=== PATIENT | male | born 1970 | race Caucasian/White ===

== ENCOUNTER 2020-05-20 10:51 | Outpatient (REF) | payer MEDICAID, SELFPAY | END 2020-05-20 10:52 | disposition home or self-care (01) | LOC: HO.LAB 10:51 | PROVIDERS: Visit Provider Internal Medicine | DX: Z20.822 Contact with and (suspected) exposure to COVID-19 (principal) | CPT/HCPCS: 36415; C9803; U0003; U0005 ==

== ENCOUNTER 2020-12-06 08:58 | Emergency (ER) | payer MEDICAID, SELFPAY ==
[2020-12-06 09:01] VITALS: BP 151/96; PULSE 74; RESP 16; TEMP 36.4; O2SAT 100; BMI 30.1
--- NOTE | 2020-12-06 09:09 | ED.MALEGU ---
HPI - Male Genitourinary General Chief complaint: Urogenital-Male Stated complaint: ?std Time Seen by Provider: 12/06/20 09:05 Source: patient Mode of arrival: ambulatory Limitations: no limitations History of Present Illness HPI Narrative: 50 y/o male presenting with white/clear urethral discharge after unprotected sex 3 days ago. He reports concerns for STDs. He also has some burning with urination. No fevers, N/V/D or abdominal pain. No testicular pain. No genital lesions or itching. MD Complaint: penile discharge, dysuria and possible STD exposure Onset (ago): day(s) (3) Duration: intermittent Location: penis Severity: mild Severity scale (1-10): 4 Quality: burning Relieving factors: none Exacerbating factors: none Context: new sexual partner Associated symptoms: Reports discharge and dysuria Related Data Sexually active: Yes Previous Rx's Medication Instructions Recorded doxycycline monohydrate 100 mg 100 mg PO BID #14 tab 12/06/20 tablet Allergies Allergy/AdvReac Type Severity Reaction Status Date / Time No Known Allergies Allergy Verified 12/06/20 09:03 Review of Systems Constitutional: Constitutional: Denies chills and Denies fever(s) Eyes: Eyes: Reports no additional eye complaints ENT: Reports system reviewed and no additional complaints, except as documented Cardiovascular: Cardiovascular: Denies chest pain Respiratory: Respiratory: Denies cough Gastrointestinal: Gastrointestinal: Denies abdominal pain, Denies diarrhea, Denies nausea and Denies vomiting Genitourinary: Genitourinary: Denies hematuria, Denies genital lesions, Denies genital pain, Reports dysuria, Reports penile discharge, Denies scrotal swelling, Denies testicular mass and Denies testicular pain Musculoskeletal: Musculoskeletal: Denies back pain Integumentary/Breasts: Skin/Breast: Denies pruritus and Denies lesions Psychiatric: Psychiatric: Reports anxiety PMFSH Past Medical History Attestation statement: The following information was validated with the patient. Social History Social History Advance Directives: No Advance Directives Information Provided: No Physical Exam Vital Signs: Vital Signs: Last Vital Signs Temp 97.6 F 12/06/20 09:01 Pulse 74 12/06/20 09:01 Resp 16 12/06/20 09:01 BP 151/96 H 12/06/20 09:01 Pulse Ox 100 12/06/20 09:01 Body Mass Index 30.1 Const: General: cooperative, healthy appearing, comfortable and no acute distress Nutritional Appearance: average body habitus Orientation/consciousness: patient oriented x3 Limitations: no limitations HENMT: Head: Yes normal to inspection Ears: hearing grossly normal bilaterally and external ears normal General nose exam: Normal external nose present and Normal nares present Face and sinus: Yes normal facial exam and Yes face symmetric Mouth: Normal oral and palatal mucosa present, lip normal, tongue normal, oropharynx normal and moist mucous membranes Teeth and gingiva: dentition normal and gingiva normal Throat: Yes posterior oropharynx normal, Yes tonsils normal and Yes uvula midline Eyes: General: appearance normal, both eyes and all related structures Neck: Neck: Yes normal visual inspection Chest: Chest palpation & inspection: normal inspection of the chest Resp: Effort & Inspection: normal respiratory effort and able to speak in complete sentences GI: Inspection: Yes normal to inspection Palpation (GI): Soft to palpation and nontender Rectal Exam - Male: Yes deferred : Male General Exam: Yes normal external exam, No Genital lesions present and No tenderness Penis: normal penis, circumcised and No Genital lesions present Meatus: meatus normal and no meatla discharge Scrotum: scrotum normal Testes: Testes normal Skin: General skin exam: no rashes or lesions noted Neuro: General: patient oriented x3, gait normal, tone normal and moves all extremities Extrem: General: Yes normal to inspection Psych: Appearance: grossly normal and well kempt Mental Status: mental status grossly normal Speech and movement: Normal speech and movement present Affect: normal affect Attitude: cooperative Course Course Course Narrative: 50 y/o male presenting with symptoms of STI, probable CT/NG. Will treat with PO azithromycin and IM rocephin. Doxy sent to pharmacy and patient has been counseled. He will follow up with his doctor and inform his partner. Stable for d/c home with outpatient follow up. MDM - Male Genitourinary Lab Data Labs: Lab Results 12/06/20 Range/Units 09:25 Urine Color YELLOW Urine Appearance CLEAR Urine pH 6.0 (5.0-8.0) Ur Specific [place] 1.025 (1.005-1.025) Urine Protein NEG (NEG-TRACE) MG/DL Urine Glucose (UA) NEG (NEG) MG/DL Urine Ketones NEG (NEG) MG/DL Urine Blood NEG (NEG) Urine Nitrite NEG (NEG) Ur Leukocyte Esterase NEG (NEG) Discharge Plan Discharge Clinical Impression: Urethritis Patient Disposition: Home, Self-Care Instructions: Chlamydia (ED), Gonorrhea (ED) Additional Instructions: Your urine test was negative for urine infection. You were treated for possible sexually transmitted diseases today. If your tests for gonorrhea or chlamydia come back positive, we will call you to let you know. Do not have sex until all of your symptoms are resolved. Recommend informing your partner you were tested and treated today. Follow up with your doctor as needed. If you develop new or worsening symptoms call 911 or come back to the ER for further evaluation. Prescriptions: New doxycycline monohydrate 100 mg tablet 100 mg PO BID Qty: 14 RF: 0 Interventions: ED Discharge Assessment Last Done: 12/06/20 10:35 Discharge Date/Time: 12/06/20 10:36
[2020-12-06 09:33] LABS: Appearance Urine CLEAR; Color Urine YELLOW; Glucose Urine UA NEG (NEG); Leukocyte Esterase Urine NEG (NEG); Nitrite Urine NEG (NEG); Specific Gravity - Urine 1.025 (1.005-1.025); Urine Blood NEG (NEG); Urine Ketones NEG (NEG); Urine Protein NEG (NEG-TRACE)
[2020-12-06] MEDS: Azithromycin 500 MG TABLET 1000 MG PO (09:33)
[2020-12-06] MEDS: cefTRIAXone sodium 500 MG, Lidocaine HCl 1 % MPF 1 ML IM (09:34)
[2020-12-06 11:51] LABS: CT PCR NOT DETECTED (Not Detect.); NG PCR NOT DETECTED (Not Detect.)
== END 2020-12-06 10:36 | disposition home or self-care (01) ==
PROVIDERS: Physician Assistant; Emergency Provider Emergency Medicine; PCP Nurse Practitioner Family
DX: N34.2 Other urethritis (principal); R36.9 Urethral discharge, unspecified; R30.0 Dysuria; Z20.2 Contact with and (suspected) exposure to infections with a predominantly sexual mode of transmission; Z79.899 Other long term (current) drug therapy
CPT/HCPCS: 81003; 87491; 87591; 96372; 99283; J0696

== ENCOUNTER 2021-08-10 08:14 | Outpatient (REF) | payer MEDICAID, SELFPAY ==
[2021-08-10 09:00] LABS: COVID-19 Test Negative (Negative); IDNOW Serial# 08D9AD1C
== END 2021-08-10 08:15 | disposition home or self-care (01) ==
LOC: HO.LAB 08:14
PROVIDERS: Visit Provider Internal Medicine
DX: Z20.822 Contact with and (suspected) exposure to COVID-19 (principal)
CPT/HCPCS: 87635; C9803

== ENCOUNTER 2024-02-01 15:06 | Emergency (ER) | payer MEDICAID, SELFPAY ==
--- NOTE | ~2024-02-01 | XR_ITS ---
EXAMINATION: XR LUMBOSACRAL SPINE CLINICAL INFORMATION: Pain. COMPARISON: None available. TECHNIQUE: Three views of the lumbosacral spine. FINDINGS: Trace leftward curvature of the lumbar spine. No acute compression deformity or subluxation. Mild intervertebral disc height loss with moderate facet arthropathy at L5-S1 leading to some degree of neural foraminal encroachment. SI joints are symmetric. No significant paraspinal soft tissue abnormality. XR/XR lumbar spine 2-3V IMPRESSION: 1. No acute compression deformity or subluxation. 2. Mild to moderate lumbar spondylosis at L5-S1. Electronically signed by: Alyssa Fink MD 02/01/2024 05:33 PM EDT
[2024-02-01 15:22] VITALS: BP 134/93; PULSE 67; RESP 16; TEMP 36.9; O2SAT 97; BMI 30.3
--- NOTE | 2024-02-01 15:23 | ED_ITS ---
HPI - General Adult General Chief complaint: Extremity Injury, Lower Stated complaint: right leg pain Time Seen by Provider: 02/01/24 18:08 Source: patient Mode of arrival: ambulatory Limitations: no limitations History of Present Illness ED Provider: MICHEAL WHYTE PA-C HPI narrative: 53-year-old male with no significant pmhx presents to the ED today with right- sided low back/hip pain x months. Reports pain radiation down his right thigh. Admits the pain is burning in sensation and worse at night making it difficult for him to sleep. Has been taking ccny-gge-yteecuc Motrin without improvement. Denies known injury, trauma or fall. No history of similar. Denies numbness/tingling/weakness of the lower extremities, saddle anesthesia, bowel or bladder incontinence or retention, dysuria, hematuria. Related Data Previous Rx's ?Medication ?Instructions ?Recorded doxycycline monohydrate 100 mg 100 mg PO BID #14 tabs 12/06/20 tablet lidocaine 5 % topical patch 1 patch topical DAILY #15 ea 02/01/24 (Lidoderm) naproxen 500 mg tablet 500 mg PO Q8-12H PRN pain (scale 02/01/24 score 1-3) #20 tabs prednisone 20 mg tablet 40 mg (2 x 20 mg) PO DAILY 5 days 02/01/24 #10 tabs Allergies Allergy/AdvReac Type Severity Reaction Status Date / Time No Known Allergies Allergy Verified 02/01/24 15:24 Review of Systems Review of Systems: Constitutional: No fever, chills, fatigue, night sweats, weight changes ENT/Mouth: No ear pain, hearing loss, nasal congestion, sinus pain, rhinorrhea, sore throat Eyes: No eye pain, swelling, redness, vision changes, discharge Cardio: No chest pain, palpitations, FRANCISCO, orthopnea, peripheral edema Pulm: No SOB, cough, sputum, wheezing, dyspnea, hemoptysis GI: No nausea, vomiting, hematemesis, abdominal pain, diarrhea, constipation, hematochezia, melena : No irregular bleeding, dysuria, frequency, urgency, hesitancy, hematuria, flank pain, urinary flow changes, urinary incontinence or retention MSK: +back pain, No neck pain, joint pain, myalgias Skin: No lesions, rashes Neuro: No weakness, numbness, paresthesias, LOC, dizziness, headache All other systems reviewed and are negative. [facility] Past Medical History Attestation statement: The following information was validated with the patient. Source: old records reviewed and nursing notes reviewed Social History Social History Advance Directives: No Advance Directives Information Provided: Yes Physical Exam ED Vital Signs: Vital Signs - 24 hr 02/01/24 15:22 02/01/24 18:55 Temperature 98.4 F 98.4 F Pulse Rate 67 67 Respiratory Rate 16 16 Blood Pressure 134/93 H 134/93 H Pulse Oximetry 97 97 Oxygen Delivery Method Room Air Room Air BMI result Body Mass Index 30.3 hypertensive, vitals otherwise wnl General: Well appearing, in no acute distress. Skin: Warm, dry, intact. No rashes or lesions. Head: Normocephalic, atraumatic. EENT: Hearing is intact b/l. PERRLA. EOM intact. Moist mucous membranes.? Neck: Supple without LAD Cardiac: Chest wall symmetric. RRR. Lungs: Normal respiratory effort without accessory muscle use. CTA bilaterally. Abdomen: Soft, non-tender, non-distended. No rebound tenderness or guarding. Positive BS x4. No CVAT. Back: No midline spinous or paraspinal tenderness. No step off deformity. positive straight leg raise on right. Ext: Upper and lower extremities atraumatic, without tenderness, deformity, swelling or erythema. Full ROM throughout. Neuro: AOx3. Normal speech. Strength 5/5 intact throughout. No saddle anesthesia. Sensation intact to light touch. NV intact distally. Reflexes 2+ bilaterally. Ambulating with steady gait. Psych: Appropriate mood and affect. Responds appropriately to questions. Course Course Course Narrative: RME, this is a rapid medical exam performed by Margarito Dunn please refer to primary provider for complete H&P- 53-year-old male presents for evaluation of right lower back pain that radiates around to his right upper leg. Denies any known injury, there are no warning signs for cauda equina syndrome. History is consistent with sciatica. Plan for x-ray. Reevaluation(s) Reevaluation #1: 6696 -- xr lumbar spine showing mild to moderate lumbar spondylosis at L5/S1. No acute deformity, fracture subluxation. > physical exam is consistent with sciatica. Patient treated with IM Toradol in the ED. Will send naproxen and prednisone to pharmacy. I have also provided him with low back exercises to perform at home. Referral to PCP provided. Patient has remained stable throughout ED visit today. Discussed worrisome signs and symptoms and when to return to the ED. All questions answered at this time. Patient is agreeable with disposition and stable for discharge. Medications Administered Discontinued Medications Generic Name Dose Route Start Last Admin Trade Name Rony PRN Reason Stop Dose Admin Ketorolac Tromethamine 30 mg 02/01/24 18:26 02/01/24 18:31 Ketorolac Tromethamine 30 Mg/Ml Vial IM 02/01/24 18:27 30 mg ONCE ONE Administration Medical Decision Making Medical Decision Making MDM Narrative: 53-year-old male with no significant pmhx presents to the ED today with right- sided low back/hip pain x months. Hypertensive, vitals otherwise wnl. he is nontoxic appearing and in NAD. lying comfortably on the exam bed. on exam, there is no midline spinous or paraspinal tenderness. No step off deformity. positive straight leg raise on right. Strength 5/5 intact throughout. No saddle anesthesia. Sensation intact to light touch. NV intact distally. Reflexes 2+ bilaterally. Ambulating with steady gait. Differential diagnosis includes MSK sprain/strain, fracture, subluxation, disc herniation, sciatica. Unlikely cord compression, cauda equina, Guillain-Cable, epidural abscess. Presentation not consistent with UTI, renal colic, nephrolithiasis, pyelo, hydronephrosis. Plan for imaging, pain control, and re-evaluation. Differential Diagnosis Differential Diagnoses: The differential diagnosis associated with the presentation includes as above Admission/Observation Not indicated. Independent Interpretation I performed an independent interpretation of an: Plain X-Ray Interpretation: xr without fracture, agree with radiologist's interpretation. Radiology Impression Discussion of test interpretation with radiology: I have reviewed the radiologist's reading. Radiologist Impression: EXAMINATION: XR LUMBOSACRAL SPINE CLINICAL INFORMATION: Pain. COMPARISON: None available. TECHNIQUE: Three views of the lumbosacral spine. FINDINGS: Trace leftward curvature of the lumbar spine. No acute compression deformity or subluxation. Mild intervertebral disc height loss with moderate facet arthropathy at L5-S1 leading to some degree of neural foraminal encroachment. SI joints are symmetric. No significant paraspinal soft tissue abnormality. XR/XR lumbar spine 2-3V IMPRESSION: 1. No acute compression deformity or subluxation. 2. Mild to moderate lumbar spondylosis at L5-S1. Electronically signed by: Alyssa Fink MD 02/01/2024 05:33 PM EDT RP Independent Historian Clinical information obtained from an independent historian. History obtained from or confirmed by: Spouse External Record Review External record reviewed: Inpatient record Prescription Management I considered prescription management with: Pain Medication and Other (prednisone) Social Determinants Patient?s care significantly limited by Social Determinants of Health including: Other Social Determinant of Health Critical Care Time Critical Care Time Critical Care Time: No Discharge Plan Discharge Clinical Impression: Sciatica Patient Disposition: Home, Self-Care Instructions: Sciatica (ED), Lower Back Exercises (ED) Additional Instructions: The x-ray of your lumbar spine does not reveal fracture. As discussed, your physical exam findings are consistent with sciatica. Naproxen as an anti-inflammatory pain medication that has been sent to your pharmacy for you to take as needed for pain/discomfort. Prednisone as a steroid that has been sent to your pharmacy. Take this over the next 5 days to treat inflammation. I have also provided you with lower back exercises to do at home. As discussed, you will need to follow up with PCP as you will likely require physical therapy. You have been provided with referrals to PCP. You may call them to establish care. They will not call you. Return to the ED with new or worsening symptoms. In the case of an emergency call 911. Prescriptions: New lidocaine [Lidoderm] 5 % adhesive patch,medicated 1 patch topical DAILY Qty: 15 0RF Rx Instructions: leave on most painful area for up to 12 hrs naproxen 500 mg tablet 500 mg PO Q8-12H PRN (Reason: pain (scale score 1-3)) Qty: 20 0RF prednisone 20 mg tablet 40 mg PO DAILY 5 Days Qty: 10 0RF No Action doxycycline monohydrate 100 mg tablet 100 mg PO BID Qty: 14 0RF [place] [facility] [facility] [place] Group[place] [facility] [place] Group] [facility] [Provider Group] Interventions: ED Discharge Assessment Last Done: 02/01/24 18:55 Discharge Date/Time: 02/01/24 18:55 Print Language: Ethiopian
[2024-02-01] MEDS: Ketorolac Tromethamine 30 MG/ML VIAL IM (18:31)
[2024-02-01 18:55] VITALS: BP 134/93; PULSE 67; RESP 16; TEMP 36.9; O2SAT 97
== END 2024-02-01 18:55 | disposition home or self-care (01) ==
PROVIDERS: Emergency Provider Emergency Medicine
DX: M54.41 Lumbago with sciatica, right side (principal); M79.604 Pain in right leg
CPT/HCPCS: 72100; 96372; 99283; 99284; J1885

== ENCOUNTER 2024-08-24 16:16 | Emergency (ER) | payer MEDICAID, SELFPAY ==
--- NOTE | ~2024-08-24 | XR_ITS ---
CLINICAL HISTORY: lower back pain 3 views lumbar spine Comparison: CR/HI/SR - XR LUMBAR SPINE 2-3V - 02/01/24 16:08 EDT Findings: Normal alignment. No acute fractures or dislocation. Disc spaces maintain normal height. Spondylosis and facet arthropathy at L5-S1. Facet arthropathy at L4-5. Mild degenerative changes right hip. IMPRESSION: 1. No acute findings. This document has been electronically signed by: Imani Small MD on 08/24/2024 18:09:06
[2024-08-24 16:24] VITALS: BP 112/84; PULSE 104; RESP 18; TEMP 36.8; O2SAT 96; BMI 32.0
--- NOTE | 2024-08-24 18:35 | ED_ITS ---
HPI - General Adult General Chief complaint: Back Pain/Injury Stated complaint: Sciatic nerve Time Seen by Provider: 08/24/24 18:03 Source: patient, RN notes reviewed and old records reviewed Mode of arrival: ambulatory Limitations: no limitations History of Present Illness ED Provider: Mona BUSCH narrative: 54-year-old male presents for evaluation of right lower back pain. Patient reports he has had the pain on and off for several months. He was seen in January of last year and diagnosed with sciatica. He reports that his pain did resolve with the prednisone but has intermittently returned. On this occasion he has had severe pain for the last 24-48 hours He denies any specific injury He reports his pain radiates around his right buttocks, hip into his right leg. 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 He does report over the last you are so he has had intermittent right testicular pain. Currently he does not experience his pain. He is unsure if this is related to his back pain He does report having had an ultrasound about 1 year ago and was told everything was normal Related Data Previous Rx's ?Medication ?Instructions ?Recorded doxycycline monohydrate 100 mg 100 mg PO BID #14 tabs 12/06/20 tablet lidocaine 5 % topical patch 1 patch topical DAILY #15 ea 02/01/24 (Lidoderm) naproxen 500 mg tablet 500 mg PO Q8-12H PRN pain (scale 02/01/24 score 1-3) #20 tabs prednisone 20 mg tablet 40 mg (2 x 20 mg) PO DAILY 5 days 02/01/24 #10 tabs cyclobenzaprine 10 mg tablet 10 mg PO TID PRN muscle spasm #20 08/24/24 tabs prednisone 20 mg tablet 40 mg (2 x 20 mg) PO DAILY #10 tabs 08/24/24 Allergies Allergy/AdvReac Type Severity Reaction Status Date / Time No Known Allergies Allergy Verified 08/24/24 16:32 Review of Systems Constitutional: Constitutional: Denies body ache(s), Denies chills and Denies headache(s) Eyes: Eyes: Denies blurry vision ENT: Denies dysphagia, Denies vertigo, Denies dizziness and Denies headache(s) Cardiovascular: Cardiovascular: Denies chest pain and Denies chest pain at rest Respiratory: Respiratory: Denies cough Gastrointestinal: Gastrointestinal: Denies abdominal pain, Denies dysphagia, Denies nausea and Denies vomiting Musculoskeletal: Musculoskeletal: Reports back pain, Denies arthralgias, Denies joint swelling, Denies limited range of motion, Reports radiating pain into limb, Reports stiffness and Denies tingling Integumentary/Breasts: Skin/Breast: Denies rash Neurologic: Denies vertigo, Denies dizziness, Denies headache(s) and Denies tingling Psychiatric: Psychiatric: Denies anxiety Physical Exam ED Vital Signs: Vital Signs - 24 hr 08/24/24 16:24 Temperature 98.2 F Pulse Rate 104 H Respiratory Rate 18 Blood Pressure 112/84 Pulse Oximetry 96 BMI result Body Mass Index 32.0 Const General: healthy appearing, comfortable, no acute distress, alert and awake Nutritional Appearance: well nourished Orientation/consciousness: patient oriented x3 HENMT Head: Yes normocephalic and Yes atraumatic Eyes Eyelids: Yes eyelids normal Conjunctivae: conjunctivae normal Sclerae: sclerae normal Corneas: corneas normal Pupils: Equal, round and reactive pupils present EOM: EOMs intact bilaterally Neck Neck: Yes full ROM Resp Effort & Inspection: normal respiratory effort, able to speak in complete sentences and not labored Back/Spine/Pelvis Other: There is mild tenderness to her right lumbosacral region as well as the right hip without obvious deformity. Straight leg raise negative on right. Skin General skin exam: elasticity normal Neuro General: patient oriented x3 Cranial nerves: Yes Equal, round and reactive pupils present and Yes Bilaterally intact EOM present Cognition (Neuro): normal cognition Motor exam (neuro): 5/5 motor strength present throughout Deep tendon reflexes (DTR's): Right patellar reflex intensity grade: 2+ and Left patellar reflex intensity grade: 2+ Extrem Other: Moving all extremities well without any obvious deformities Medical Decision Making Medical Decision Making MDM Narrative: 54-year-old male presents for evaluation of acute on chronic back pain. Denies any specific injury. Vomiting his history exam is most consistent with sciatica. There are no concern for infectious process. His there was no trauma. His x-ray does show L5-S1 arthropathy. This is likely exacerbated by heavy lifting at work. There are no warning signs for cauda equina syndrome. The patient does know occasional right testicular pain that he is not currently experiencing. I did recommend an ultrasound to which he declined as he has had this done and currently does not have pain. Given that he is currently pain- free, testicular torsion favored to be highly unlikely. He has no GI or symptoms. We will discharge the patient with the prednisone and cyclobenzaprine. I had a lengthy discussion with the patient regarding outpatient follow-up for further evaluation and management. Return precautions were given Differential Diagnosis Differential Diagnoses: The differential diagnosis associated with the present ation includes Acute on chronic back pain Radiculopathy Sacroiliitis Sciatica Muscle strain Hydrocele Varicocele Radiology Impression Discussion of test interpretation with radiology: I have reviewed the radiologist's reading. Radiologist Impression: Findings: Normal alignment. No acute fractures or dislocation. Disc spaces maintain normal height. Spondylosis and facet arthropathy at L5-S1. Facet arthropathy at L4-5. Mild degenerative changes right hip. IMPRESSION: 1. No acute findings. This document has been electronically signed by: Imani Small MD on 08/24/2024 18:09:06 Discharge Plan Discharge Clinical Impression: Sciatica Patient Disposition: Home, Self-Care Instructions: Sciatica (ED), Sacroiliitis (ED) Additional Instructions: Your x-ray again shows mild degenerative changes of L5-S1 as well as minor arthritis of the right hip, but the right hip was only partially imaged as this was a dedicated spine x-ray. I recommend using ibuprofen and Tylenol for pain. Take prednisone 40 mg daily for the next 5 days. Take cyclobenzaprine as needed for muscle spasms. This may make you drowsy, do not drink alcohol or drive after taking it It is very important that you follow-up with your outpatient providers, you may benefit from an outpatient MRI to further direct management You may follow-up with Urology for the intermittent scrotal pain Prescriptions: New cyclobenzaprine 10 mg tablet 10 mg PO TID PRN (Reason: muscle spasm) Qty: 20 0RF prednisone 20 mg tablet 40 mg PO DAILY Qty: 10 0RF No Action doxycycline monohydrate 100 mg tablet 100 mg PO BID Qty: 14 0RF lidocaine [Lidoderm] 5 % adhesive patch,medicated 1 patch topical DAILY Qty: 15 0RF Rx Instructions: leave on most painful area for up to 12 hrs naproxen 500 mg tablet 500 mg PO Q8-12H PRN (Reason: pain (scale score 1-3)) Qty: 20 0RF prednisone 20 mg tablet 40 mg PO DAILY 5 Days Qty: 10 0RF Referrals: [facility] [place]] (acute on chronic back pain) [facility] [Provider Group] (right testicular pain) Print Language: Malagasy
[2024-08-24] MEDS: predniSONE 20 MG TABLET 40 MG PO (18:55)
[2024-08-24] MEDS: Ketorolac Tromethamine 30 MG/ML VIAL IM (18:55)
[2024-08-24] MEDS: Cyclobenzaprine HCl 10 MG TABLET PO (18:56)
[2024-08-24 19:09] VITALS: BP 115/77; PULSE 95; RESP 18; TEMP 36.8; O2SAT 96
[2024-08-24 19:10] VITALS: BP 115/77; PULSE 95; RESP 18; TEMP 36.8; O2SAT 96
== END 2024-08-24 19:10 | disposition home or self-care (01) ==
PROVIDERS: Emergency Provider Emergency Medicine; PCP Internal Medicine
DX: M54.40 Lumbago with sciatica, unspecified side (principal)
CPT/HCPCS: 72100; 96372; 99284; J1885

== ENCOUNTER → 2024-08-24 17:00 | Outpatient (BNV) | payer MEDICAID, SELFPAY | PROVIDERS: Emergency Provider Emergency Medicine; PCP Internal Medicine; Visit Provider Specialist | DX: M54.50 Low back pain, unspecified (principal) | CPT/HCPCS: 72100 ==

== ENCOUNTER 2024-09-05 16:01 | Outpatient (REF) | payer MEDICAID, SELFPAY ==
--- OUTSIDE RECORDS SUMMARY | 2024-09-05 16:04 | XMS_ITS | Encounter Summary ---
Author Organization [employer] Address [address] [place] [address] Care Team Providers Care Can Sterilizer Name Role Phone King Dhaliwal MD Primary Care Prov ider Reason for Visit * Reason Onset Date Comments Call Back Request 06/03/2024 Encounter Details Date Type Department Care Team ([facility] st Contact Info) Description 06/03/2024 Telephone [facility] MEDICINE [address] [place] [address] King Dhaliwal MD [address] [place] [address] Call Back Request Social History Tobacco Use Types Packs/Day Years Used Date Smoking Tobacco: Every Day Cigarettes 0.3 37.4 Started: 1987 Passive Smoke Exposure: Current Smokeless Tobacco: Never Alcohol Use Standard Drinks/Week Comments Not Currently 0 (1 standard drink = 0.6 oz pur e alcohol) Depression Answer Date Recorded Patient Health Questionnaire-9 Score 15 03/27/2024 Patient Health Questionnaire-9 Score 15 03/27/2024 Last PHQ-9: Questionnaire Data Not on file 1 05/28/2023 Housing Stability Answer Date Recorded What is your housing situation today? Not on jennifer e 03/27/[address] you li ve. Do you have problems with any of the following? None of the above 03/27/2024 Food Insecurity Answer Date Recorded Within the past 12 months, y ou worried that your food would run out before you got money to buy more: Never True 03/27/2024 Within the past 12 months,th e food you bought just didn't last and you didn't have enough money to get more: Never True Transportation Answer Date Recorded In the past 12 months, has l ack of transportation kept you from medical appts, meetings, work or from getting things needed for daily living? No 03/27/2024 Utilities Answer Date Recorded In the past 12 months, has t he electric, gas, oil or water company threatened to shut off services in your home? No 03/27/2024 Depression Answer Date Recorded Patient Health Questionnaire-2 Score 2 03/27/2024 Internet Access Answer Date Recorded Internet Access Q1 Yes 03/27/2024 Internet Access Q2 Not on file 03/27/2024 Sex and Gender Information Value Date Recorded Sex Assigned at Male 02/07/2022 10:16 AM EDT Legal Sex Male 10:16 AM EDT Gender Identity Male 02/07/2022 10:16 AM EDT Sexual Orientation Choose not to disclose 2021 10:16 AM EDT documented as of this encounter Miscellaneous Notes * Telephone Encounter - Kristy Liu RN - 06/03/2024 9:48 AM EST TC to pt to discuss concerns. Pt stated having a colonoscopy scheduled for December 2024 and is asking if it should wait until then. Pt stating having increased tiredness and legs are constantly hurting. Pt stating having labs done with GI specialist and wanting to discuss those. Pt states also having bumps on penis tip. Pt states having an appointment in July 2024 with PCP and is concerned about these issues and is wondering if they should be seen sooner. Routing information to provider for review and recommendation. * Telephone Encounter - Vesta Boss - 06/03/2024 8:49 AM EST Tc from pt requesting a callback as pt has several concerns , pt denied triage call. [phone] documented in this encounter Plan of Treatment Upcoming Encounters Date Type Department Care Team (Late st Contact Info) Description 10/23/2024 9:45 AM EDT Office Visit [facility] [address] [place], [place] [phone] King Dhaliwal MD [address] [place], [place] [phone] documented as of this encounter Visit Diagnoses Not on filedocumented in this encounter Additional Health Concerns Assessment Noted Time PHQ-9 Depression Total Score: 15 024 2:19 PM EST documented as of this encounter Care Teams Can Sterilizer Relationship Specialty Start Date End Date King Dhaliwal MD [address] [place] [id number] PCP - General Internal Medicine 04/15/24 documented as of this encounter
[2024-09-05 17:36] LABS: MANUAL DIFF FLAG NO
[2024-09-05 17:42] LABS: Appearance Urine Clear; Color Urine Yellow; Glucose Urine UA Negative (Negative); Leukocyte Esterase Urine Trace (Negative); Nitrite Urine Negative (Negative); Specific Gravity - Urine >= 1.030 (1.005-1.025); UMIC TRIGGER UACC YES; Urine Blood Negative (Negative); Urine Ketones Trace mg/dL (Negative); Urine Protein 30 (1+) mg/dL (Neg-Trace)
[2024-09-05 17:43] LABS: Basophils Absolute Auto 0.1 X10*3/uL (0.0-0.2); Basophils Percent Auto 0.6 % (0-2); Eosinophils Absolute Auto 0.1 X10*3/uL (0.0-0.4); Eosinophils Percent Auto 0.6 % (0-4); Hematocrit 46.7 % (42.0-52.0); Hemoglobin 15.6 g/dl (14.0-18.0); Imm Gran Abs Auto 0.02 X10*3/uL (0.00-0.03); Imm Gran Pct Auto 0.2 % (0.0-0.4); Lymphocytes Absolute Auto 3.3 X10*3/uL (1.2-4.9); Lymphocytes Percent Auto 37.1 % (20-40); Mean Corpuscular HGB Conc 33.4 g/dl (31.0-36.0); Mean Corpuscular Volume 92.8 fL (80.0-98.0); Mean Platelet Volume 10.5 fL (9.4-12.4); Monocytes Absolute Auto 0.7 X10*3/uL (0.1-1.2); Monocytes Percent Auto 8.3 % (2-11); Neutrophils Absolute Auto 4.7 x10*3/uL (2.0-8.3); Neutrophils Percent Auto 53.2 % (45-73); Platelet Count 273 X10*3/uL (160-400); Red Blood Count 5.03 X10*6/uL (4.60-5.80); Red Cell Distribution Width 13.9 % (11.0-16.0); White Blood Count 8.9 X10*3/uL (4.8-10.8)
[2024-09-05 17:48] LABS: Bacteria Urine None Seen (None Seen); Hyaline Casts Urine 0-2 /LPF (0-2); RBC Urine 0-2 /HPF (0-2); UACC Culture Trigger YES
[2024-09-05 17:58] LABS: Alanine Aminotransferase 49 U/L (0-40); Albumin Level 5.1 g/dL (3.5-5.0); Alkaline Phosphatase 59 U/L (39-117); Anion Gap 13 (12-20); Aspartate Amino Transferase 31 U/L (5-37); Bilirubin Total 0.5 mg/dL (0.0-1.0); Blood Urea Nitrogen 16 mg/dL (9-16); Calcium 10.2 mg/dL (8.4-10.2); Carbon Dioxide 28 mmol/L (22-29); Chloride 105 mmol/L (96-108); Estimated Glomerular Filt Rate > 60; Glucose Random 97 mg/dL (60-115); Potassium 4.5 mmol/L (3.3-5.1); Sodium 141 mmol/L (135-145)
== END 2024-09-05 16:02 | disposition home or self-care (01) ==
LOC: HO.CHCLDS 16:01
PROVIDERS: Visit Provider Internal Medicine
DX: R03.0 Elevated blood-pressure reading, without diagnosis of hypertension (principal); N50.811 Right testicular pain; R74.01 Elevation of levels of liver transaminase levels
CPT/HCPCS: 36415; 80053; 81001; 85025; 87086; 87147

== ENCOUNTER 2024-10-24 09:08 | Outpatient (REF) | payer MEDICAID, SELFPAY ==
--- NOTE | ~2024-10-24 | US_ITS ---
EXAMINATION: US SCROTUM HISTORY: tenderness of right testicle.. COMPARISON: There are no prior studies available for comparison. FINDINGS: Real-time grayscale ultrasound imaging of the scrotum was performed. RIGHT TESTICLE: The right testis measures 4.7 x 2.1 x 4.0 cm and demonstrates normal homogeneous echotexture. No masses are seen. The right testis demonstrates normal color Doppler flow. RIGHT EPIDIDYMIS: Normal in size, shape, and vascularity. LEFT TESTICLE: The left testis measures 4.1 x 1.9 x 2.9 cm and demonstrates normal homogeneous echotexture. No masses are seen. The left testis demonstrates normal color Doppler flow. LEFT EPIDIDYMIS: Normal in size, shape, and vascularity. There is a 3 mm epididymal head cyst. VARICOCELE: There are small bilateral varicoceles. HYDROCELE: No significant hydrocele is seen. OTHER COMMENTS: None. US/US scrotum IMPRESSION: Small bilateral varicoceles. 3 mm left epididymal head cyst. Otherwise unremarkable scrotal ultrasound. Electronically signed by: Kuldeep Houser MD 11/04/2024 07:14 AM EDT
--- NOTE | ~2024-10-24 | US_ITS ---
EXAMINATION: US ABDOMEN COMPLETE WITH LIVER ELASTOGRAPHY HISTORY: Transaminitis TECHNIQUE: Real-time grayscale ultrasound imaging of the abdomen was performed and images were reviewed. COMPARISON: There are no prior studies available for comparison. FINDINGS: Liver: The right lobe of the liver measures 18.0 cm in size. The left lobe of the liver measures 11.9 cm in size. The liver demonstrates increased echotexture, consistent with steatosis. No focal mass or intrahepatic biliary ductal dilatation is identified. There is normal hepatopedal flow in the portal vein. Ultrasound elastography of the liver was performed with 10 separate measurements of the liver parenchyma with the patient in the supine position. Measurements were obtained approximately 2 cm below Ang's capsule and perpendicular to the capsule. The median shear wave velocity is 1.35 m/s. The interquartile range/median (IQR/median) is 0.07. Gallbladder and biliary tree: The gallbladder is unremarkable, without evidence of calculi, wall thickening, or pericholecystic fluid. There is no sonographic Thomas sign. The common bile duct is normal in caliber measuring 3 mm. Kidneys: The right kidney measures 11.6 cm in length. The left kidney measures 12.0 cm in length. The kidneys are unremarkable, without evidence of masses, hydronephrosis, or calculi. Pancreas: The pancreatic head, neck, and body are unremarkable. The pancreatic tail is obscured by bowel gas. Spleen: The spleen is normal in size and contour, measuring 10.2 cm in length. Abdominal aorta and inferior vena cava: The visualized portions of the abdominal aorta and inferior vena cava are normal in caliber. There is no free fluid in the abdomen. US/US abdomen comp w elastography IMPRESSION: Hepatomegaly and hepatic steatosis. The median shear wave velocity in the liver is 1.35 m/s, corresponding to a median liver stiffness of 5.60 kPa. The IQR/median value is 0.07. This is indicative of a quality data set. Findings are indicative of a low elastography value which rules out advanced chronic liver disease in asymptomatic patients. REFERENCE: Society of Radiologists in Ultrasound Liver Stiffness Thresholds (2019): LIVER STIFFNESS THRESHOLDS: *Shear wave velocity less than 1.3 m/s (Liver Stiffness equal or less than 5 kPa): High probability of being normal. *Shear wave velocity less than 1.7 m/s (Liver Stiffness less than 9 kPa): In the absence of other known clinical signs, rules out compensated advanced chronic liver disease. *Shear wave velocity between 1.7-2.1 m/s (Liver Stiffness 9-13 kPa): Suggestive of compensated advanced chronic liver disease but need further test for confirmation. *Shear wave velocity between 2.1-2.4 m/s (Liver Stiffness 13-17 kPa): Rules in compensated advanced chronic liver disease. *Shear wave velocity greater than 2.4 m/s (Liver Stiffness over 17 kPa): Suggestive of clinically significant portal hypertension. QUALITY OF DATA SET: *IQR/Median value equal or less than 0.15 implies a quality data set. *IQR/Median value over 0.15 implies a poor quality data set. SIGNIFICANT CHANGE FROM PRIOR EXAM: Significant change if liver stiffness measurement is 10% or greater from prior exam. OTHER CONSIDERATIONS: The stage of liver fibrosis may be overestimated in the setting of acute hepatitis, liver inflammation, elevated liver function tests, hepatic vascular congestion, obstructive cholestasis, non-fasting state, and infiltrative diseases such as amyloidosis and lymphoma. In some patients with NAFLD, the liver stiffness thresholds for compensated advanced chronic liver disease may be lower. In causes other than viral hepatitis and NAFLD, liver stiffness thresholds are not well established. Electronically signed by: Kuldeep Houser MD 10/24/2024 10:34 AM EDT
--- OUTSIDE RECORDS SUMMARY | 2024-10-24 09:28 | XMS_ITS | Encounter Summary ---
Author Organization [employer] Address [address] [place] [address] Care Team Providers Care Emissions Repair Technician Name Role Phone King Dhaliwal MD Primary Care Prov ider Reason for Visit * Reason Onset Date Comments Call Back Request 06/03/2024 Encounter Details Date Type Department Care Team ([facility] st Contact Info) Description 06/03/2024 Telephone [facility] MEDICINE [address] [place] [address] King Dhaliwal MD [address] [place] [address] Call Back Request Social History Tobacco Use Types Packs/Day Years Used Date Smoking Tobacco: Every Day Cigarettes 0.3 37.5 Started: 1987 Passive Smoke Exposure: Current Smokeless [...] Male 02/07/2022 10:16 AM EDT Sexual Orientation Straight 09/06/2024 9: 08 AM EDT documented as of this encounter [...] several concerns , pt denied triage call. [phone] documented in this encounter Plan of Treatment Not on file documented as of this encounter Visit Diagnoses Not on filedocumented in this encounter Additional Health Concerns Assessment Noted Time PHQ-9 Depression Total Score: 15 024 2:19 PM EST documented as of this encounter Care Teams Emissions Repair Technician Relationship Specialty Start Date End Date King Dhaliwal MD [address] [place] [id number] PCP - General Internal Medicine 04/15/24 documented as of this encounter
--- OUTSIDE RECORDS SUMMARY | 2024-10-24 09:28 | XMS_ITS | Patient Health Record ---
Author Organization [facility] Address [address] [place], [place] [id number] Care Team Providers Care Verifier Name Role Phone Jack - DO NOT USE, [facility] Primary Care Provider Unavailable Rebeca Castillo Unavailable [phone] [facility], Nursing Unavailable [phone] Alejandra Rai Unavailable [phone] Allergies No Known Allergies Reason For Referral Reason [facility] Dental Routine Referral Organization [facility] Referring Provider First Name Nursing Referring Provider Last Name [facility] Referring Provider Speciality Family Pra ctice Referred Provider Jack Meier DO NOT USE, [facility] Referral Priority Routine Medications Medication SIG (Take, Route, Fr equency, Duration) Notes Start Date End Date Status ibuprofen 600 mg 1 tab(s) orally tid prn pain 07/2018 Not-Taking sertraline 100 mg 1 tab(s) orally once a day for 30 day(s) 01/11/2019 Not-Taking famotidine 20 mg 1 tab(s) orally once a day for 30 days 04/15/2020 Not-Taking Immunizations Vaccine Route Administration Date Status Comme nts PPD planted Unknown 10/21/2007 Administered negative Td (adult) Unknown 04/10/1997 Administered Influenza IM Intramuscular 02/14/2008 Administered Hepatitis A IM Intramuscular 05/21/2018 Administered ndc 0 [id number] Hepatitis B (20 or more) IM Intramuscular 06/04/2018 Administered [id number] Influenza IM Intramuscular 06/04/2018 Administered [id number] Social History Tobacco Use: Social History Observation Description Date Details (start date - stop date) Current Smoker NA - NA Tobacco Use Assessment MU Question Answer Notes What is your current smoking status? current smo ker How often do you smoke? some days, but not every day How many cigarettes a day do you smoke? 11-20 How soon after you wake up d o you smoke your first cigarette? Within 5 minutes Are you interested in quitting? ready to quit Patient counseled on the aleksandr gers of tobacco use and advised to quit: 12/07/2023 Problems Problem Type SNOMED Code ICD Code Onset Dates Problem Status W/U Status Risk Notes Problem Obesity (502283962) Obesity, unspecified (E66.9) Active confirmed Problem Alcohol dependence (29892147) Alcohol dependence, uncomplicated (F10.20) Active confirmed Problem Mental disorder caused by drug (945658356) Cocaine abuse with unspecified cocaine-induced disorder (F14.19) Active confirmed Problem Tobacco user (911817065) Nicotine dependence, cigarettes, uncomplicated (F17.210) Active confirmed Problem Depressed bipolar I disorder (13360513) Bipolar disorder, current episode depressed, mild or moderate severity, unspecified (F31.30) Active confirmed Problem Recurrent major depression (06395401) Major depressive disorder, recurrent, unspecified (F33.9) Active confirmed Problem Posttraumatic stress disorder (95323898) Post-traumatic stress disorder, chronic (F43.12) Active confirmed Problem Insomnia (217585220) Insomnia, unspecified (G47.00) Active confirmed Problem Gastro-esophageal reflux disease without esophagitis (712782445) Gastro-esophageal reflux disease without esophagitis (K21.9) Active confirmed Problem Urge incontinence of urine (13488132) Urge incontinence (N39.41) Active confirmed Problem Skin sensation disturbance (45549116) Hypoesthesia of skin (R20.1) Active confirmed Problem Polyuria (61310942) Other polyuria (R35.8) Active confirmed Problem Impaired fasting glucose (663103302) Impaired fasting glucose (R73.01) Active confirmed Problem Homelessness (99454847) Homelessness (Z59.0) Active confirmed Problem Low income (988986758) Low income (Z59.6) Active confirmed Problem Body mass index 30.00 to 34.99 (991749845926339) Body mass index (BMI) 32.0-32.9, adult (Z68.32) Active confirmed Problem Dietary management surveillance (878033888) Dietary counseling and surveillance (Z71.3) Active confirmed Problem High risk heterosexual behavior (028116512193532) High risk heterosexual behavior (Z72.51) Active confirmed Problem FH: Diabetes mellitus (683880480) Family history of diabetes mellitus (Z83.3) Active confirmed Problem Exercises teaching, guidance, and counseling (375096503) Exercise counseling (Z71.82) Active confirmed Problem Depression Screening (008705779) Encounter for screening for depression (Z13.31) Active confirmed Encounters Encounter Location Date Provider Diagnosis [address] [id number] 12/07/2023 [place] Encounter for screening for COVID-19 Z11.52 ; Encounter for screening for depression Z13.31 and Low income Z59.[address] [id number] 12/07/2023 [place] Assessments Encounter Date Diagnosis (ICD Code) Assessment Notes Treatment Notes Treatment Clinical Notes Section Notes 12/07/2023 Encounter for screening for COVID-19 (ICD-10 - Z11.52) Covid verbal screening negative. 12/07/2023 Encounter for screening for depression (ICD-10 - Z13.31) PHQ-9 was assessed, score was 11, moderate depressionPt. currently not involved in MH services, pt. expresses interest in initiating services.TE sent to Alejandra Rai to schedule pt. 12/07/2023 Low income (ICD-10 - Z59.6) Medical, Social and Psych history reviewed and documented. Pt currently not on any meds. [facility] records available, able to update immunization history. Pt does not report any urgent needs at time of visit, encouraged to contact clinic if any issues or concerns arise prior to scheduled appt with provider. Pt informed of provider appt details 01/09/2024 Other 12/07/2023 Other Pt wants to be referred to dental at [facility]. Referral sent to [facility] Dental Time spent in visit: minutes-30mins Plan Of Treatment Pending Test Test Name Order Date GLYCOHEMOGLOBIN PROFILE 05/21/2018 US Renal and Bladder 07/15/2019 Insurance Providers Payer Name Payer Address Payer Phone Subscriber Number Group Number Insured Name Patient Relationship to Insured Coverage Start Date Coverage End Date [place] Medicaid C3 [address] [place], [place] [id number] Edvin Brito Self - patient is the insured 7 [facility] Program [address] [place] [address] [id number] Edvin Brito Self - patient is the insured Medical (General) History Medical History History ICD Code Cocaine/Etoh use 03/2017 MDD OBESITY NOS Surgical History Surgery Date(Month/Year) Hospitalization History Reason Date(Month/Year) [facility] [place] [facility] [place], MDD with [facility] jeanie ideation, substance use disorder, cocaine use disorder 01/08-01/15/19 [facility] [place], dc to home 01/04 Number of psych admissions-[facility]-psych admission 2015
== END 2024-10-24 09:09 | disposition home or self-care (01) ==
LOC: HO.US 09:08
PROVIDERS: PCP Internal Medicine; Visit Provider Internal Medicine
DX: R74.01 Elevation of levels of liver transaminase levels (principal); N50.811 Right testicular pain
CPT/HCPCS: 76700; 76870; 76981

== ENCOUNTER → 2024-10-24 09:10 | Outpatient (BNV) | payer MEDICAID, SELFPAY | PROVIDERS: PCP Internal Medicine; Visit Provider Radiology Diagnostic Radiology | DX: R16.0 Hepatomegaly, not elsewhere classified (principal) | CPT/HCPCS: 76700 ==

== ENCOUNTER 2024-11-06 15:15 | Outpatient (AMB) | payer MEDICAID, SELFPAY ==
--- NOTE | 2024-11-06 15:26 | MHC.OFFVIS ---
Intake Visit Reasons: intermittent testicular pain Intake Note: Patient is present for INTERMITTEN TESTICULAR PAIN Urology Medication:NONE Antibiotic Allergy:NONE Blood Thinner:NONE Speed Winder Required: No Allergies No Known Allergies Allergy (Verified 11/06/24 16:12) Medication List - Last Reconciled 11/06/24 by ABIMAEL Hickey pentoxifylline ER 400 mg PO BID 90 days tadalafil (Cialis) 5 mg PO DAILY 90 days vitamin E (dl, acetate) 450 mg PO DAILY 90 days HPI Comments Details: Edvin is a pleasant 54-year-old male patient of Dr. Julienne Calderon. He presents to the office today as a new patient for scrotal discomfort he has been experiencing. In discussion with the patient today reports having followed up with his PCP for ongoing testicular/scrotal discomfort he has been experiencing at which time a ultrasound was ordered for further assessment evaluation. These results were reviewed and communicated with the patient today. 11/01 scrotal ultrasound notes small bilateral varicoceles. 3 mm left epididymal head cyst. Otherwise unremarkable scrotal ultrasound. In discussion with the patient today he reports noting intermittent episodes of right-sided mg testicular/scrotal discomfort. He describes these episodes as intermittent. He currently denies any discomfort. In assessment of the patient today the penis is circumcised. Unable to palpate left epididymal head cysts noted on imaging. However, in assessment of area it does appear patient with right-sided inguinal discomfort. On exam patient was also noted to have Peyronie's disease with the curvature/deviation to the left side at about 20 degrees. We did discussed at length potential causes of scrotal discomfort patient is experiencing as well as Peyronie's disease. We discussed further treatment options of these urological conditions and risks and benefits of these treatment options. He otherwise denies any bothersome urinary issues. All questions were answered. Review of Systems Const All systems reviewed & are unremarkable except as noted in HPI and below Physical Exam Const General: cooperative, healthy appearing, comfortable, no acute distress, well developed, alert and awake Orientation/consciousness: patient oriented x3 Limitations: no limitations HEENT Head: Yes normal to inspection, Yes normocephalic and Yes atraumatic Ears: hearing grossly normal bilaterally Eyes General: appearance normal, both eyes and all related structures Neck Neck: Yes normal visual inspection and Yes trachea midline Chest Chest palpation & inspection: normal inspection of the chest Resp Effort & Inspection: normal respiratory effort and able to speak in complete sentences Cardio Rate: regular rate GI Inspection: Yes normal to inspection General: Yes no CVA tenderness Back/Spine/Pelvis Back: no CVA tenderness Skin General skin exam: no rashes or lesions noted Neuro General: patient oriented x3 Extrem General: Yes normal to inspection Psych Appearance: grossly normal and well kempt Mental Status: mental status grossly normal Speech and movement: Normal speech and movement present and Clear speech present Affect: normal affect Attitude: cooperative Thought process: Normal thought process present Thought content: Normal thought content present Insight: Fair insight present (Psych) Judgement: Fair judgement present (Psych) Results AMB Urinalysis, Automated UA Leukoctes 0 Manuel/uL Last Edit by Tesfaye Lagunas [facility] on 11/06/24 15:57 UA Nitrite Negative Last Edit by Tesfaye Lagunas [facility] on 11/06/24 15:57 UA Urobilinogen 0.2 mg/dL Last Edit by Tesfaye Lagunas [facility] on 11/06/24 15:57 UA Protein 15 mg/dL Last Edit by Tesfaye Lagunas [facility] on 11/06/24 15:57 UA pH 6.0 Last Edit by Tesfaye Lagunas [facility] on 11/06/24 15:57 UA Blood 0 Humberto/uL Last Edit by Tesfaye Lagunas [facility] on 11/06/24 15:57 UA Specific [place] 1.030 Last Edit by Tesfaye Lagunas [facility] on 11/06/24 15:57 UA Ketone Negative Last Edit by Tesfaye Lagunas [facility] on 11/06/24 15:57 UA Bilirubin 0 mg/dL Last Edit by Tesfaye Lagunas [facility] on 11/06/24 15:57 UA Glucose 0 mg/dL Last Edit by Tesfaye Lagunas [facility] on 11/06/24 15:57 Results Reviewed Results Reviewed: Laboratory Last Values Urine pH (Auto) 6.0 11/06/24 15:54 Specific [place] (Auto) 1.030 11/06/24 15:54 Urine Protein (Auto) 15 mg/dL 11/06/24 15:54 Glucose (UA)(Auto) 0 mg/dL 11/06/24 15:54 Urine Ketones (Auto) Negative 11/06/24 15:54 Urine Blood (Auto) 0 Humberto/uL 11/06/24 15:54 Urine Nitrite (Auto) Negative 11/06/24 15:54 Urine Bilirubin (Auto) 0 mg/dL 11/06/24 15:54 Urine Urobilinogen (Auto) 0.2 mg/dL 11/06/24 15:54 Leukocyte Esterase (Auto) 0 Manuel/uL 11/06/24 15:54 Date of Service: 10/24/24 Procedure(s): US scrotum FINDINGS: Real-time grayscale ultrasound imaging of the scrotum was performed. RIGHT TESTICLE: The right testis measures 4.7 x 2.1 x 4.0 cm and demonstrates normal homogeneous echotexture. No masses are seen. The right testis demonstrates normal color Doppler flow. RIGHT EPIDIDYMIS: Normal in size, shape, and vascularity. LEFT TESTICLE: The left testis measures 4.1 x 1.9 x 2.9 cm and demonstrates normal homogeneous echotexture. No masses are seen. The left testis demonstrates normal color Doppler flow. LEFT EPIDIDYMIS: Normal in size, shape, and vascularity. There is a 3 mm epididymal head cyst. VARICOCELE: There are small bilateral varicoceles. HYDROCELE: No significant hydrocele is seen. OTHER COMMENTS: None. IMPRESSION: Small bilateral varicoceles. 3 mm left epididymal head cyst. Otherwise unremarkable scrotal ultrasound. Assessment & Plan Assessment & Plan (1) Peyronie's disease: Code(s): N48.6 - Induration penis plastica Category: Medical (2) Epididymal cyst: Code(s): N50.3 - Cyst of epididymis Category: Medical (3) Bilateral varicoceles: Code(s): I86.1 - Scrotal varices Category: Medical Plan Recent scrotal ultrasound results reviewed with the patient today; as noted above. We did discuss potential causes of right-sided scrotal discomfort as well as Peyronie's disease; we discussed further treatment options and risks and benefits of these treatment options. Will obtain PSA for further assessment evaluation. Start tadalafil, pentoxifylline, and vitamin-E as discussed and prescribed. Information provided regarding penile pump for Peyronie's disease. He denies any bothersome urinary issues. He reports be happy with current voiding parameters. Follow-up in 3-6 months with lab to be completed prior; or sooner with any issues, concerns, and or questions. Orders: Orders AMB Urinalysis Automated Today Z13.9 - Encounter for screening, unspecified Medications: New tadalafil (Cialis) [id number] [facility] GroupGDRX Member [id number] 5 mg PO DAILY 90 tabs 1RF 90 days pentoxifylline ER administer with meals 400 mg PO BID 180 tabs 1RF 90 days vitamin E (dl, acetate) 450 mg PO DAILY 90 caps 1RF 90 days N48.6 - Induration penis plastica Patient Instructions: The patient had an opportunity to ask questions regarding the treatment plan. All questions were answered. Physical exam, labs, and imaging were discussed and reviewed in detail. As well as risks, benefits, and discussion of treatment choices. No major barriers to understanding were identified. The patient expressed understanding and agreement with the above treatment plan. The patient was made aware they should contact our office by phone for worsening of their current condition, the appearance of new symptoms, or with any questions or concerns. Compliance is encouraged with any medications and follow up testing that is ordered. It is a privilege to be allowed the opportunity to participate in? your urological care.? Again, if you have any questions or concerns If you have any questions or concerns please do not hesitate to contact me. The office is [phone]. This note is constructed using voice recognition software. While every effort has been made to ensure accuracy sticker machine operator errors may have been included. Yours sincerely, ABIMAEL Hickey Coding Level of Care Code New Pt Level 4 (83000) Diagnoses Peyronie's disease N48.6 Epididymal cyst N50.3 Bilateral varicoceles I86.1
--- OUTSIDE RECORDS SUMMARY | 2024-11-06 15:58 | XMS_ITS | Encounter Summary ---
Author Organization [employer] Address [address] [place] [address] Care Team Providers Care Office Machine Inspector Name Role Phone King Dhaliwal MD Primary Care Prov ider Reason for Visit * Reason Onset Date Comments Call Back Request 06/03/2024 Encounter Details Date Type Department Care Team ([facility] st Contact Info) Description 06/03/2024 Telephone [facility] [address] [place] [address] King Dhaliwal MD [address] [place] [address] Call Back Request Social History Tobacco Use Types Packs/Day Years Used Date Smoking Tobacco: Every Day Cigarettes 0.3 37.6 Started: 1987 Passive Smoke Exposure: Current Smokeless [...] several concerns , pt denied triage call. [phone] documented in this encounter Plan of Treatment Upcoming Encounters Date Type Department Care Team ([facility] st Contact Info) Description 11/13/2024 3:30 PM EDT Office Visit [facility] [address] [place], [place] [phone] King Dhaliwal MD [address], [place] [phone] documented as of this encounter Visit Diagnoses Not on filedocumented in this encounter Additional Health Concerns Assessment Noted Time PHQ-9 Depression Total Score: 15 024 2:19 PM EST documented as of this encounter Care Teams Office Machine Inspector Relationship Specialty Start Date End Date King Dhaliwal MD [address] [place] [id number] PCP - General Internal Medicine 04/15/24 documented as of this encounter
== END 2024-11-06 16:02 | disposition home or self-care (01) ==
LOC: HO.HUSH 15:16
PROVIDERS: PCP Internal Medicine; Visit Provider Nurse Practitioner Family
DX: N48.6 Induration penis plastica (principal); N50.3 Cyst of epididymis; I86.1 Scrotal varices; Z13.9 Encounter for screening, unspecified
CPT/HCPCS: 99204

== ENCOUNTER → 2024-11-06 15:15 | Outpatient (BNVA) | payer MEDICAID, SELFPAY | PROVIDERS: PCP Internal Medicine; Visit Provider Nurse Practitioner Family | DX: Z71.2 Person consulting for explanation of examination or test findings (principal); N48.6 Induration penis plastica; N50.3 Cyst of epididymis; I86.1 Scrotal varices | CPT/HCPCS: 81003; 99212 ==

== ENCOUNTER → 2024-12-18 18:29 | Outpatient (BNV) | payer MEDICAID, SELFPAY | PROVIDERS: PCP Internal Medicine; Visit Provider Radiology Diagnostic Radiology | DX: M47.816 Spondylosis without myelopathy or radiculopathy, lumbar region (principal) | CPT/HCPCS: 72148 ==

== ENCOUNTER 2024-12-18 18:36 | Outpatient (REF) | payer MEDICAID, SELFPAY ==
--- OUTSIDE RECORDS SUMMARY | 2024-01-08 05:00 | XMS_ITS ---
Author Organization [facility] Address [address] [place] [id number] Care Team Providers Care Retail Pharmacy Merchandiser Name Role Phone GtZAcodieve - DO NOT USE, [facility] Primary Care Provider Unavailable Rebeca Castillo Unavailable [phone] Alejandra Rai Unavailable [phone] REASON FOR VISIT MS/Office: MH intake Encounters Encounter Location Date Provider Diagnosis [address] [address] 01/08/2024 Alejandra Rai Plan Of Treatment No Information Progress Notes * Edvin CHAMBERSDOB:[birth year] (54 yo M)Acc No.[id number]:01/08/2024 Progress Notes Patient: Edvin ACOSTA Provider: Blaise Rai :1970 A ge:53 Y S ex:Male Date:01/08/2024 Address:[address] [place], [place] [id number] Pcp:[facility] ZSally - DO NOT USE Subjective: * Chief Complaints: * 1 . MS/Office: MH intake. * Medical History: Objective: * Vitals: Assessment: Plan: * Treatment: * Images: Billing Information: * Visit Code: * Procedure Codes: Care Plan Details* * Electronic signature of Mikey Rai on 12/18/2024 at 06:50 PM EDT Sign off status: Pending * Provider: Blaise Rai Date: 0 01/08/2024 Generated for Aura lorenz/Destiny/eTransmitting on: 0 12/18/2024 06:50 PM EDT
--- OUTSIDE RECORDS SUMMARY | 2024-01-09 06:30 | XMS_ITS ---
Author Organization [facility] Address [address] [place] [address] Care Team Providers Care Wrapper Stemmer Hand Name Role Phone ZZArchive - DO NOT USE, [facility] Primary Care Provider Unavailable Rebeca Castillo Unavailable [phone] REASON FOR VISIT Office: Re-establish Medications Medication SIG (Take, Route, Fr equency, Duration) Notes Start Date End Date Status ibuprofen 600 mg 1 tab(s) orally tid prn pain 07/2018 Not-Taking sertraline 100 mg 1 tab(s) orally once a day for 30 day(s) 01/11/2019 Not-Taking famotidine 20 mg 1 tab(s) orally once a day for 30 days 04/15/2020 Not-Taking Encounters Encounter Location Date Provider Diagnosis [facility] [address] [place] [address] 01/09/2024 Rebeca Castillo Encounter for screening for [...] * Edvin CHAMBERSDOB:[birth year] (54 yo M)Acc No.[id number]:01/09/2024 Progress Notes Patient: Edvin ACOSTA Provider: BLU Soler :1970 A ge:53 Y S ex:Male Date:01/09/2024 Address:[address] [place], [place] [id number] Pcp:[facility] [...] * Medical History: * Medications: N ot-Taking/PRN famotidine 20 mg tablet 1 tab(s) orally once a day , Not- Taking/PRN sertraline 100 mg tablet 1 tab(s) orally once a day , Not-Taking/PRN ibuprofen 600 mg tablet 1 tab(s) orally tid prn pain Objective: * Vitals: Assessment: * Assessment: 1. E ncounter for screening for COVID-19 - Z11.52 (Primary) Plan: * Treatment: * Images: Billing Information: * Visit Code: * Procedure Codes: Care Plan Details* * Electronic signature of Carlo Castillo on 12/18/2024 at 06:50 PM EDT Sign off status: Pending * Provider: BLU Soler Date: 1 Generated for Aura lorenz/Destiny/Aries on: 0 12/18/2024 06:50 PM EDT
--- NOTE | ~2024-12-18 | MR_ITS ---
EXAMINATION: MR LUMBAR SPINE WITHOUT CONTRAST CLINICAL INFORMATION: Chronic low back pain with radiculopathy. COMPARISON: None available. TECHNIQUE: MRI of the lumbar spine was obtained using routine sequences without contrast. FINDINGS: Last rib-bearing vertebra labeled T12. No bone marrow STIR signal abnormality. Multilevel marginal osteophyte formation decreased intervertebral disc height and signal from L1-2 to L5-S1. Focal hyperintense T2 signal in the posterior intervertebral disc L4-5 and to a lesser extent L3-4 likely annular fissure. Conus medullaris ends at pedicle of L1 with normal signal. There is normal alignment. T12-L1: Broad-based disc bulging. Facet joint hypertrophy. No compression upon neural elements. L1-2: Left subarticular broad-based herniated disc. Facet joint hypertrophy. Reduced AP diameter of the thecal sac. No neuroforamina stenosis. L2-3: Broad-based disc bulging. Facet joint and ligamentum flavum hypertrophy. Reduced AP diameter of the thecal sac. No neuroforamina stenosis. L3-4: Left subarticular disc herniation with 2 mm cephalad extension beneath the posterior longitudinal ligament. Facet joint ligamentum flavum hypertrophy. CSF effacement of the thecal sac central spinal canal stenosis compressing the neural elements of the thecal sac. Bilateral neuroforamina narrowing encroaching the L3 exiting nerve roots. L4-5: Right subarticular and foraminal broad-based herniated disc. Facet joint and ligamentum flavum hypertrophy. CSF effacement of the thecal sac central spinal canal stenosis compressing the neural elements of the thecal sac. Bilateral neuroforamina stenosis encroaching the L4 exiting nerve roots. L5-S1: Broad-based disc bulging. Facet joint hypertrophy. Reduced AP diameter of the thecal sac. Bilateral neuroforamina narrowing encroaching the L5 exiting roots. No prevertebral compartment hematoma, mass or fluid collection. . MR/MR lumbar spine wo con IMPRESSION: Multilevel lumbar spondylosis resulting in central spinal canal stenosis at L3-4, L4-5 and to a lesser extent L2-3 compressing the neural elements at L4-5 and L3-4 and encroaching the neural elements at L2-3. Extruded disc at L3-4 and right superior articular and foraminal herniated disc at L4-5 compressing the neural elements of the thecal sac. Electronically signed by: Jay Houston MD 12/19/2024 07:10 AM EDT
--- OUTSIDE RECORDS SUMMARY | 2024-12-18 18:50 | XMS_ITS | Patient Health Record ---
Author Organization [facility] Address [address] [place] [address] Care Team Providers Care Tongue Binder Name Role Phone [employer] - DO NOT USE, [facility] Primary Care Provider Unavailable Rebeca Castillo Unavailable [phone] Alejandra Rai Unavailable [phone] Allergies No Known Allergies Reason For Referral No Information Medications Medication SIG (Take, Route, Fr equency, [...] Administered Hepatitis A IM Intramuscular 05/21/2018 Administered nd 0 [id number] Hepatitis B (20 or more) IM Intramuscular 06/04/2018 Administered 05659-500-61 Influenza IM Intramuscular 06/04/2018 Administered 15823- [id number] Social History Tobacco Use: Social History [...] to quit Patient counseled on the aleksandr keens of tobacco use and advised to quit: 12/07/2023 Problems Problem Type SNOMED Code ICD Code Onset Dates Problem Status W/U Status Risk Notes Problem Obesity (417368097) Obesity, unspecified (E66.9) Active confirmed Problem Alcohol dependence (62516139) Alcohol dependence, uncomplicated (F10.20) Active confirmed Problem Mental disorder caused by drug (248632290) Cocaine abuse with unspecified cocaine-induced disorder (F14.19) Active confirmed Problem Tobacco user (333416387) Nicotine dependence, cigarettes, uncomplicated (F17.210) Active confirmed Problem Depressed bipolar I disorder (66874467) Bipolar disorder, current episode depressed, mild or moderate severity, unspecified (F31.30) Active confirmed Problem Recurrent major depression (15911458) Major depressive disorder, recurrent, unspecified (F33.9) Active confirmed Problem Posttraumatic stress disorder (24810149) Post-traumatic stress disorder, chronic (F43.12) Active confirmed Problem Insomnia (355525798) Insomnia, unspecified (G47.00) Active confirmed Problem Gastro-esophageal reflux disease without esophagitis (268200188) Gastro-esophageal reflux disease without esophagitis (K21.9) Active confirmed Problem Urge incontinence of urine (52083261) Urge incontinence (N39.41) Active confirmed Problem Skin sensation disturbance (73999162) Hypoesthesia of skin (R20.1) Active confirmed Problem Polyuria (84671027) Other polyuria (R35.8) Active confirmed Problem Impaired fasting glucose (348312586) Impaired fasting glucose (R73.01) Active confirmed Problem Homelessness (46550007) Homelessness (Z59.0) Active confirmed Problem Low income (478837286) Low income (Z59.6) Active confirmed Problem Body mass index 30.00 to 34.99 (244020917572641) Body mass index (BMI) 32.0-32.9, adult (Z68.32) Active confirmed Problem Dietary management surveillance (044620114) Dietary counseling and surveillance (Z71.3) Active confirmed Problem High risk heterosexual behavior (105656100028390) High risk heterosexual behavior (Z72.51) Active confirmed Problem FH: Diabetes mellitus (606304672) Family history of diabetes mellitus (Z83.3) Active confirmed Problem Exercises teaching, guidance, and counseling (347904697) Exercise counseling (Z71.82) Active confirmed Problem Depression Screening (377525667) Encounter for screening for depression (Z13.31) Active confirmed Assessments Encounter Date Diagnosis (ICD Code) Assessment Notes Treatment Notes Treatment Clinical Notes Section Notes 01/09/2024 Other Plan Of Treatment Pending Test Test Name Order Date GLYCOHEMOGLOBIN PROFILE 05/21/2018 US Renal and Bladder 07/15/2019 Insurance Providers Payer Name Payer Address Payer Phone Subscriber Number Group Number Insured Name Patient Relationship to Insured Coverage Start Date Coverage End Date [place] C[place] [address] [place], [place] [id number] Edvin Brito Self - patient is the insured 7 [employer] [address] [place] [address] [id number] Edvin Brito Self - patient is the insured Medical (General) History Medical History History ICD Code Cocaine/Etoh use 03/2017 MDD OBESITY NOS Surgical History Surgery Date(Month/Year) Hospitalization History Reason Date(Month/Year) [facility]TU ADM, MDD with [facility] jeanie ideation, substance use disorder, cocaine use disorder 01/08-01/15/19 [facility] ER bipolar disorder, dc to home 01/04 [facility] of psych admissions-[facility] admission 2015
--- OUTSIDE RECORDS SUMMARY | 2024-12-18 18:50 | XMS_ITS | Encounter Summary ---
Author Organization [employer] Address [address] [facility] 7 [place] [address] Care Team Providers Care Jukebox Operator Name Role Phone King Dhaliwal MD Primary Care Prov ider Reason for Referral * Imaging (Routine) - Closed Specialty Diagnoses / Procedures Referred By Contac t Referred To Contact Radiology Diagnoses Transaminitis Procedures US Abdomen Comp w elastography Jose Roberto Quinn MD [address] [place] [id number] Phone: tel: fax: [address] Phone: tel: fax: Referral ID Status Reason Start Date Expiration Date Visits Re quested Visits Authorized [id number] Closed 09/05/2024 09/05/2025 1 1 Encounter Details Date Type Department Care Team (Late st Contact Info) Description 09/05/2024 Orders Only [facility] [address] [place] [id number] Jose Roberto Quinn MD [address] [place] [phone] Right testicular pain (Primary Dx); Transaminitis; Other proteinuria Social History Tobacco Use Types Packs/Day Years Used Date Smoking Tobacco: Every Day Cigarettes 0.3 37.7 Started: 1987 Passive Smoke Exposure: Current Smokeless [...] AM EDT documented as of this encounter Plan of Treatment Scheduled Orders Name Type Priority Associated Diagnoses Orde r Schedule CBC auto differential Lab Routine Transaminitis Expected: 09/05/2024 (Approximate), Expires: 09/05/2025 Hepatitis A Antibody, Total Lab Routine Transaminitis Expected: 09/05/2024 (Approximate), Expires: 09/05/2025 Hepatitis A IgM Antibody Lab Routine Transaminitis Expected: 09/05/2024 (Approximate), Expires: 09/05/2025 Lipid Panel, Standard Lab Routine Transaminitis Expected: 09/05/2024 (Approximate), Expires: 09/05/2025 Prothrombin Time-INR Lab Routine Transaminitis Expected: 09/05/2024, Expires: 09/05/2025 Partial Thromboplastin Time, Activated (APTT) Lab Routine Transaminitis Expected: 09/05/2024, Expires: 09/05/2025 Hemoglobin A1c Lab Routine Transaminitis Expected: 09/05/2024 (Approximate), Expires: 09/05/2025 Iron And Total Iron Binding Capacity Lab Routine Transaminitis Expected: 09/05/2024, Expires: 09/05/2025 Ferritin Lab Routine Transaminitis Expected: 09/05/2024 (Approximate), Expires: 09/05/2025 Hepatitis C Antibody with Reflex to HCV, RNA, Quantitative, Real-Time PCR Lab Routine Transaminitis Expected: 09/05/2024 (Approximate), Expires: 09/05/2025 Hepatitis B surface antigen, EIA Lab Routine Transaminitis Expected: 09/05/2024 (Approximate), Expires: 09/05/2025 Hepatitis B Core Antibody, Total Lab Routine Transaminitis Expected: 09/05/2024 (Approximate), Expires: 09/05/2025 Hepatitis B Surface Antibody, Qualitative Lab Routine Transaminitis Expected: 09/05/2024 (Approximate), Expires: 09/05/2025 Alpha 1 Antitrypsin Lab Routine Transaminitis Expected: 09/05/2024 (Approximate), Expires: 09/05/2025 Smooth Muscle Antibody with Reflex to Titer Lab Routine Transaminitis Expected: 09/05/2024 (Approximate), Expires: 09/05/2025 Urinalysis, Complete, with Reflex to Culture Lab Routine Right testicular pain Transaminitis Other proteinuria Expected: 09/05/2024 (Approximate), Expires: 09/05/2025 documented as of this encounter Procedures Procedure Name Priority Date/Time Associated Diagnosis Comments US ABDOMEN COMPLETE WITH ELASTOGRAPHY Routine 10/24/2024 9:30 AM EDT Transaminitis CULTURE, URINE, ROUTINE Routine 09/05/2024 12:00 AM EDT Right testicular pain documented in this encounter Results * US Abdomen Comp w elastography (10/24/2024 9:30 AM EDT) Anatomical Region Laterality Modality Abdomen Ultrasound 10/24/2024 9:30 AM EDT Narrative 10/24/2024 10:37 AM EDT [place] [address] Ultrasound Report Signed Patient: Edvin Brito MR#: [id number] : 1970 Acct:[id number] Age/Sex: 54 / M ADM Date: 10/24/24 Loc: HO.US Attending Dr: Jose Roberto Quinn MD Ordering Physician: Jose Roberto Quinn MD Date of Service: 10/24/24 Procedure(s): US abdomen comp w elastography Accession Number(s): [id number] cc: Jose Roberto Quinn MD; King Dhaliwal MD EXAMINATION: US ABDOMEN COMPLETE WITH LIVER ELASTOGRAPHY HISTORY: Transaminitis TECHNIQUE: Real-time grayscale ultrasound imaging of the abdomen was performed and images were reviewed. COMPARISON: There are no prior studies available for comparison. FINDINGS: Liver: The right lobe of the liver measures 18.0 cm in size. The left lobe of the liver measures 11.9 cm in size. The liver demonstrates increased echotexture, consistent with steatosis. No focal mass or intrahepatic biliary ductal dilatation is identified. There is normal hepatopedal flow in the portal vein. Ultrasound elastography of the liver was performed with 10 separate measurements of the liver parenchyma with the patient in the supine position. Measurements were obtained approximately 2 cm below Ang's capsule and perpendicular to the capsule. The median shear wave velocity is 1.35 m/s. The interquartile range/median (IQR/median) is 0.07. Gallbladder and biliary tree: The gallbladder is unremarkable, without evidence of calculi, wall thickening, or pericholecystic fluid. There is no sonographic Thomas sign. The common bile duct is normal in caliber measuring 3 mm. Kidneys: The right kidney measures 11.6 cm in length. The left kidney measures 12.0 cm in length. The kidneys are unremarkable, without evidence of masses, hydronephrosis, or calculi. Pancreas: The pancreatic head, neck, and body are unremarkable. The pancreatic tail is obscured by bowel gas. Spleen: The spleen is normal in size and contour, measuring 10.2 cm in length. Abdominal aorta and inferior vena cava: The visualized portions of the abdominal aorta and inferior vena cava are normal in caliber. There is no free fluid in the abdomen. US/US abdomen comp w elastography IMPRESSION: Hepatomegaly and hepatic steatosis. The median shear wave velocity in the liver is 1.35 m/s, corresponding to a median liver stiffness of 5.60 kPa. The IQR/median value is 0.07. This is indicative of a quality data set. Findings are indicative of a low elastography value which rules out advanced chronic liver disease in asymptomatic patients. REFERENCE: Society of Radiologists in Ultrasound Liver Stiffness Thresholds (2019): LIVER STIFFNESS THRESHOLDS: *Shear wave velocity less than 1.3 m/s (Liver Stiffness equal or less than 5 kPa): High probability of being normal. *Shear wave velocity less than 1.7 m/s (Liver Stiffness less than 9 kPa): In the absence of other known clinical signs, rules out compensated advanced chronic liver disease. *Shear wave velocity between 1.7-2.1 m/s (Liver Stiffness 9-13 kPa): Suggestive of compensated advanced chronic liver disease but need further test for confirmation. *Shear wave velocity between 2.1-2.4 m/s (Liver Stiffness 13-17 kPa): Rules in compensated advanced chronic liver disease. *Shear wave velocity greater than 2.4 m/s (Liver Stiffness over 17 kPa): Suggestive of clinically significant portal hypertension. QUALITY OF DATA SET: *IQR/Median value equal or less than 0.15 implies a quality data set. *IQR/Median value over 0.15 implies a poor quality data set. SIGNIFICANT CHANGE FROM PRIOR EXAM: Significant change if liver stiffness measurement is 10% or greater from prior exam. OTHER CONSIDERATIONS: The stage of liver fibrosis may be overestimated in the setting of acute hepatitis, liver inflammation, elevated liver function tests, hepatic vascular congestion, obstructive cholestasis, non-fasting state, and infiltrative diseases such as amyloidosis and lymphoma. In some patients with NAFLD, the liver stiffness thresholds for compensated advanced chronic liver disease may be lower. In causes other than viral hepatitis and NAFLD, liver stiffness thresholds are not well established. Electronically signed by: Kuldeep Houser MD 10/24/2024 10:34 AM EDT Dictated By: Kuldeep Houser MD Signed By: <Electronically signed by Kuldeep Houser MD in [place]> 10/24/24 1034 DD/ 0930 TD/TT: 10/24/24 0950 Consumer Marketing Analyst: Procedure Note Donotyokointerpreter, Image - 10/24/[address] [address] Ultrasound Report Signed Patient: Edvin BritoMR#: [id number] 338 : 1970Acct:[id number] Age/Sex: 54 / MADM Date: 10/24/24 Loc: HO.US Attending Dr: Jose Roberto Quinn MD Ordering Physician: Jose Roberto Quinn MD Date of Service: 10/24/24 Procedure(s): US abdomen comp w elastography Accession Number(s): [id number] cc: Jose Roberto Quinn MD; King Dhaliwal MD EXAMINATION: US ABDOMEN COMPLETE WITH LIVER ELASTOGRAPHY HISTORY: Transaminitis TECHNIQUE: Real-time grayscale ultrasound imaging of the abdomen was performed and images were reviewed. COMPARISON: There are no prior studies available for comparison. FINDINGS: Liver: The right lobe of the liver measures 18.0 cm in size. The left lobe of the liver measures 11.9 cm in size. The liver demonstrates increased echotexture, consistent with steatosis. No focal mass or intrahepatic biliary ductal dilatation is identified. There is normal hepatopedal flow in the portal vein. Ultrasound elastography of the liver was performed with 10 separate measurements of the liver parenchyma with the patient in the supine position. Measurements were obtained approximately 2 cm below Ang's capsule and perpendicular to the capsule. The median shear wave velocity is 1.35 m/s. The interquartile range/median (IQR/median) is 0.07. Gallbladder and biliary tree: The gallbladder is unremarkable, without evidence of calculi, wall thickening, or pericholecystic fluid. There is no sonographic Thomas sign. The common bile duct is normal in caliber measuring 3 mm. Kidneys: The right kidney measures 11.6 cm in length. The left kidney measures 12.0 cm in length. The kidneys are unremarkable, without evidence of masses, hydronephrosis, or calculi. Pancreas: The pancreatic head, neck, and body are unremarkable. The pancreatic tail is obscured by bowel gas. Spleen: The spleen is normal in size and contour, measuring 10.2 cm in length. Abdominal aorta and inferior vena cava: The visualized portions of the abdominal aorta and inferior vena cava are normal in caliber. There is no free fluid in the abdomen. US/US abdomen comp w elastography IMPRESSION: Hepatomegaly and hepatic steatosis. The median shear wave velocity in the liver is 1.35 m/s, corresponding to a median liver stiffness of 5.60 kPa. The IQR/median value is 0.07. This is indicative of a quality data set. Findings are indicative of a low elastography value which rules out advanced chronic liver disease in asymptomatic patients. REFERENCE: Society of Radiologists in Ultrasound Liver Stiffness Thresholds (2019): LIVER STIFFNESS THRESHOLDS: *Shear wave velocity less than 1.3 m/s (Liver Stiffness equal or less than 5 kPa): High probability of being normal. *Shear wave velocity less than 1.7 m/s (Liver Stiffness less than 9 kPa): In the absence of other known clinical signs, rules out compensated advanced chronic liver disease. *Shear wave velocity between 1.7-2.1 m/s (Liver Stiffness 9-13 kPa): Suggestive of compensated advanced chronic liver disease but need further test for confirmation. *Shear wave velocity between 2.1-2.4 m/s (Liver Stiffness 13-17 kPa): Rules in compensated advanced chronic liver disease. *Shear wave velocity greater than 2.4 m/s (Liver Stiffness over 17 kPa): Suggestive of clinically significant portal hypertension. QUALITY OF DATA SET: *IQR/Median value equal or less than 0.15 implies a quality data set. *IQR/Median value over 0.15 implies a poor quality data set. SIGNIFICANT CHANGE FROM PRIOR EXAM: Significant change if liver stiffness measurement is 10% or greater from prior exam. OTHER CONSIDERATIONS: The stage of liver fibrosis may be overestimated in the setting of acute hepatitis, liver inflammation, elevated liver function tests, hepatic vascular congestion, obstructive cholestasis, non-fasting state, and infiltrative diseases such as amyloidosis and lymphoma. In some patients with NAFLD, the liver stiffness thresholds for compensated advanced chronic liver disease may be lower. In causes other than viral hepatitis and NAFLD, liver stiffness thresholds are not well established. Electronically signed by: Kuldeep Houser MD 10/24/2024 10:34 AM EDT RP Dictated By: Kuldeep Houser MD Signed By: <Electronically signed by Kuldeep Houser MD in [place]> 10/24/24 1034 DD/ 0930 TD/TT: 10/24/24 0950 Consumer Marketing Analyst: us Jose Roberto Quinn MD IMG US PROCEDURES Edited Re sult - Final * Culture, Urine, Routine (09/05/2024 12:00 AM EDT) Urine Urine specimen obtained by clean catch procedure / Unknown 09/05/2024 09/05/2024 Comment:[facility] - 09/07/2024 12:59 PM EDT Strep agalactiae (Grp B) Quant 10,000 to 50,000 cfu/mL Susc N/A Susceptibility not routinely performed on this isolate. Streptococcus viridans group Quant 10,000 to 50,000 cfu/mL Susc N/A Susceptibility not routinely performed on this isolate. Specimen Source: Urine clean catch us Jose Roberto Quinn MD LAB MICROBIOLOGY - GENERAL ORDERABLES Final Result [facility] [address], [place] [id number] [phone] documented in this encounter Visit Diagnoses Diagnosis Right testicular pain- Primary Transaminitis Nonspecific elevation of levels of transaminase or lactic acid dehydrogenase (LDH) Other proteinuria documented in this encounter Additional Health Concerns Assessment Noted Time PHQ-9 Depression Total Score: 15 024 2:19 PM EST documented as of this encounter Care Teams Jukebox Operator Relationship Specialty Start Date End Date King Dhaliwal MD [address] [place] [id number] PCP - General Internal Medicine 04/15/24 documented as of this encounter
--- OUTSIDE RECORDS SUMMARY | 2024-12-18 18:50 | XMS_ITS | Clinical Summary ---
Author Organization [employer] Address [address] [facility] [address] [place] [address] Care Team Providers Care Toy Assembly Supervisor Name Role Phone King Dhaliwal MD Primary Care Prov ider Allergies No known active allergies Medications meloxicam (Mobic) 15 MG tabletIndicatio ns:Sciatica of right side Take 1 tablet (15 mg) by mouth Once per day. 30 tablet 1 5 09/06/19 26 Active methocarbamol (Robaxin) 500 MG tabletIndicatio ns:Sciatica of right side Take 1 tablet (500 mg) by mouth every 6 (six) hours for 10 days. 40 tablet 5 Active ketorolac (Toradol) 10 MG tabletIndicatio ns:Lumbar radiculopathy, chronic Take 1 tablet (10 mg) by mouth every 6 (six) hours if needed for moderate pain for up to 5 days. 20 tablet 5 12/10/19 25 Active Problems Problem Noted Date Diagnosed Date Encounter for medical examination to establish c are 03/27/2024 Assessment & Plan (03/27/2024 3:05 PM EST): Last pcp follow up over 3 years ER visit in the past year: novembner due to leg pain Hospitalization:- Pmhx:- Pshx:- All:- Meds: tylenol/ibuprofen PRN Screening for colon cancer 03/27/2024 Assessment & Plan (03/27/2024 3:05 PM EST): Will send cologuard Encounters Date Type Department Care Team Description 12/04/2024 3:45 PM EDT Office Visit [facility] [address] [place] [address] Jose Roberto Quinn MD Lumbar radiculopathy, chronic (Primary Dx) 12/04/2024 Telephone [facility] [address] [place] [address] King Dhaliwal MD Medication Question 12/04/2024 Travel 11/27/2024 Travel 11/26/2024 Telephone [facility] [address] [place] [address] King Dhaliwal MD MRI request 11/13/2024 Telephone [facility] [address] [place] [address] King Dhaliwal MD No Show from Last 3 Months Family History Medical History Relation Name Comments Diabetes Father Hypertension Father Alzheimer's disease Mother Diabetes Mother Hypertension Mother Breast cancer Mother's Sister Relation Name Status Comments Father Mother Mother's Sister Social History Tobacco Use Types Packs/Day Years [...] the past 12 months, has t he [employer], gas, oil or water [employer] threatened to shut off services in your [...] Orientation Straight 09/06/2024 9: 08 AM EDT Last Filed Vital Signs Vital Sign Reading Time Taken Comments Blood Pressure 121/79 12/04/2024 3:20 PM EDT Pulse 82 12/04/2024 3:20 PM EDT Temperature 36.8 C (98.2 F) 12/04/2024 3:20 PM EDT Respiratory Rate 20 12/04/2024 3:20 PM EDT Oxygen Saturation 98% 12/04/2024 3:20 PM EDT Inhaled Oxygen Concentration - - Weight 93.4 kg (206 lb) 12/04/2024 3:20 PM EDT Height 175.3 cm (5' 9 ) 12/04/2024 3:20 PM EDT Body Mass Index 30.42 12/04/2024 3:20 PM EDT Plan of Treatment Health Maintenance Due Date Last Done Comments CT Colonography 1970 Colonoscopy 1970 FIT 1970 HIV Screening 1970 Lipid Panel 1970 SDOH Screening 1970 Sigmoidoscopy 1970 Hepatitis C Screening 02/29/1988 DTaP/Tdap/Td Vaccines (1 - Tdap) 1989 Hepatitis B Vaccines (1 of 3 - 19+ 3-dose series) 1989 Pneumococcal Vaccine: 50+ Years (1 of 2 - PCV) 1989 Zoster Vaccines (1 of 2) 02/29/2020 Depression Monitoring 09/25/2024 03/27/2024 , 03/27/2024 COVID-19 Vaccine (3 - 2024-2 6 season) 2024 09/18/2020, 08/18/2020 Influenza Vaccine (#1) 2024 03/11/2019 Alcohol/Substance Use Screening 03/27/2025 03/27/2024 FOBT 04/19/2025 04/19/2024 Disability Screening 11/27/2025 11/27/2024 Tobacco Screening 12/04/2025 12/04/2024 Colorectal Cancer Screening 04/19/2027 FIT DNA/Cologuard 04/19/2027 04/19/2024 RSV Patients and Patients Aged 60 years or older (1 - 1-dose 75+ series) 2045 HIB Vaccines Aged Out No longer eligi ble based on patient's age to complete this topic HPV Vaccines Aged Out No longer eligi ble based on patient's age to complete this topic Hepatitis A Vaccines Aged Out No long er eligible based on patient's age to complete this topic IPV Vaccines Aged Out No longer eligi ble based on patient's age to complete this topic Meningococcal B Vaccine Aged Out No l onger eligible based on patient's age to complete this topic Meningococcal Vaccine Aged Out No marvin leonila eligible based on patient's age to complete this topic RSV under 20 months Aged Out No longe r eligible based on patient's age to complete this topic Rotavirus Vaccines Aged Out No longer eligible based on patient's age to complete this topic Procedures Procedure Name Priority Date/Time Associated Diagnosis Comments US SCROTUM Routine 10/24/2024 10:00 AM EDT Right testicular pain US ABDOMEN COMPLETE WITH ELASTOGRAPHY Routine 10/24/2024 9:30 AM EDT Transaminitis AMB REFERRAL TO PHYSICAL THERAPY Routine 09/20/2024 Sciatica of right side Elevated blood pressure reading LAB COLOGUARD COLON CANCER SCREEN Routine 04/19/2024 2:42 PM EST Screening for colon cancer from Last 3 Months or Most Recently Relevant to Health Maintenance Results * US Scrotum (10/24/2024 10:00 AM EDT) Anatomical Region Laterality Modality Body Ultrasound 10/24/2024 10:0 0 AM EDT Narrative 11/04/2024 7:17 AM EDT [address] [address] Ultrasound Report Signed Patient: Edvin Brito MR#: [id number] 338 : 1970 Acct:[id number] Age/Sex: 54 / M ADM Date: 10/24/24 Loc: HO.US Attending Dr: Jose Roberto Quinn MD Ordering Physician: Jose Roberto Quinn MD Date of Service: 10/24/24 Procedure(s): US scrotum Accession Number(s): [id number] cc: Jose Roberto Quinn MD; King Dhaliwal MD EXAMINATION: US SCROTUM HISTORY: tenderness of right testicle.. COMPARISON: There are no prior studies available for comparison. FINDINGS: Real-time grayscale ultrasound imaging of the scrotum was performed. RIGHT TESTICLE: The right testis measures 4.7 x 2.1 x 4.0 cm and demonstrates normal homogeneous echotexture. No masses are seen. The right testis demonstrates normal color Doppler flow. RIGHT EPIDIDYMIS: Normal in size, shape, and vascularity. LEFT TESTICLE: The left testis measures 4.1 x 1.9 x 2.9 cm and demonstrates normal homogeneous echotexture. No masses are seen. The left testis demonstrates normal color Doppler flow. LEFT EPIDIDYMIS: Normal in size, shape, and vascularity. There is a 3 mm epididymal head cyst. VARICOCELE: There are small bilateral varicoceles. HYDROCELE: No significant hydrocele is seen. OTHER COMMENTS: None. US/US scrotum IMPRESSION: Small bilateral varicoceles. 3 mm left epididymal head cyst. Otherwise unremarkable scrotal ultrasound. Electronically signed by: Kuldeep Houser MD 11/04/2024 07:14 AM EDT Dictated By: Kuldeep Houser MD Signed By: <Electronically signed by Kuldeep Houser MD in OV> 11/04/24 0714 DD/ 1000 TD/TT: 10/24/24 1012 Manager Games: Procedure Note Donotuseinterpreter, Image - 11/04/[address] [address] Ultrasound Report Signed Patient: Edvin BritoMR#: [id number] 338 : 1970Acct:[id number] Age/Sex: 54 / MADM Date: 10/24/24 Loc: HO.US Attending Dr: Jose Roberto Quinn MD Ordering Physician: Jose Roberto Quinn MD Date of Service: 10/24/24 Procedure(s): US scrotum Accession Number(s): [id number] cc: Jose Roberto Quinn MD; King Dhaliwal MD EXAMINATION: US SCROTUM HISTORY: tenderness of right testicle.. COMPARISON: There are no prior studies available for comparison. FINDINGS: Real-time grayscale ultrasound imaging of the scrotum was performed. RIGHT TESTICLE: The right testis measures 4.7 x 2.1 x 4.0 cm and demonstrates normal homogeneous echotexture. No masses are seen. The right testis demonstrates normal color Doppler flow. RIGHT EPIDIDYMIS: Normal in size, shape, and vascularity. LEFT TESTICLE: The left testis measures 4.1 x 1.9 x 2.9 cm and demonstrates normal homogeneous echotexture. No masses are seen. The left testis demonstrates normal color Doppler flow. LEFT EPIDIDYMIS: Normal in size, shape, and vascularity. There is a 3 mm epididymal head cyst. VARICOCELE: There are small bilateral varicoceles. HYDROCELE: No significant hydrocele is seen. OTHER COMMENTS: None. US/US scrotum IMPRESSION: Small bilateral varicoceles. 3 mm left epididymal head cyst. Otherwise unremarkable scrotal ultrasound. Electronically signed by: Kuldeep Houser MD 11/04/2024 07:14 AM EDT Dictated By: Kuldeep Houser MD Signed By: <Electronically signed by Kuldeep Houser MD in OV> 11/04/24 0714 DD/ 1000 TD/TT: 10/24/24 1012 Manager Games: us Jose Roberto Quinn MD IMG US PROCEDURES Final Res ult * US Abdomen Comp w elastography (10/24/2024 9:30 AM EDT) Anatomical Region Laterality Modality Abdomen Ultrasound 10/24/2024 9:30 AM EDT Narrative 10/24/2024 10:37 AM EDT [place] [address] Ultrasound Report Signed Patient: Edvin Brito MR#: [id number] 338 : 1970 Acct:[id number] Age/Sex: 54 / M ADM Date: 10/24/24 Loc: HO.US Attending Dr: Jose Roberto Quinn MD Ordering Physician: Jose Roberto Quinn MD Date of Service: 10/24/24 Procedure(s): US abdomen comp w elastography Accession Number(s): [id number] cc: Jose Roberto Quinn MD; King Dhaliwal [...] of Radiologists in Ultrasound Liver Stiffness Thresholds (2020): LIVER STIFFNESS THRESHOLDS: *Shear wave velocity less [...] 10/24/24 1034 DD/ 0930 TD/TT: 10/24/24 0950 Manager Games: Procedure Note Donotuseinterpreter, Image - 10/24/[address] [address] Ultrasound Report Signed Patient: Delaney Brito#: [id number] 338 : 1970Acct:[id number] Age/Sex: 54 / MADM Date: 10/24/24 Loc: HO.US Attending Dr: Jose Roberto Quinn MD Ordering Physician: Jose Roberto Quinn MD Date of Service: 10/24/24 Procedure(s): US abdomen comp w elastography Accession Number(s): [id number] cc: Jose Roberto Quinn MD; King Dhaliwal [...] of Radiologists in Ultrasound Liver Stiffness Thresholds (2020): LIVER STIFFNESS THRESHOLDS: *Shear wave velocity less [...] 10/24/24 1034 DD/ 0930 TD/TT: 10/24/24 0950 Manager Games: us Jose Roberto Quinn MD IMG US PROCEDURES Edited Re sult - Final * Referral to Physical Therapy (09/20/2024) us Jose Roberto Qiunn MD OUTPATIENT REFERRAL ORDERAB LES Final Result * (ABNORMAL) Cologuard?? colon cancer screening (04/19/2024 2:42 PM EST) Cologuard Result Positive( A) Negative 04/25/2024 5:49 PM EST [employer] (CLIA #:[id number]) Comment: POSITIVE TEST RESULT. A positive Cologuard result should be followed with a colonoscopy or visual examination of the colon. The normal value (reference range) for this assay is negative. TEST DESCRIPTION: Composite algorithmic analysis of stool DNA-biomarkers with hemoglobin immunoassay. Quantitative values of individual biomarkers are not reportable and are not associated with individual biomarker result reference ranges. Cologuard is intended for colorectal cancer screening of adults of either sex, 45 years or older, who are at average-risk for colorectal cancer (CRC). Cologuard has been approved for use by the U.S. FDA. The performance of Cologuard was established in a cross sectional study of average-risk adults aged 50-84. Cologuard performance in patients ages 45 to 49 years was estimated by sub-group analysis of near-age groups. Colonoscopies performed for a positive result may find as the most clinically significant lesion: colorectal cancer [4.0%], advanced adenoma (including sessile serrated polyps greater than or equal to 1cm diameter) [20%] or non- advanced adenoma [31%]; or no colorectal neoplasia [45%]. These estimates are derived from a prospective cross-sectional screening study of 10,000 individuals at average risk for colorectal cancer who were screened with both Cologuard and colonoscopy. (Sherwin Savage al, N Engl J Med 2014;370(14):0063-1853.) Cologuard may produce a false negative or false positive result (no colorectal cancer or precancerous polyp present at colonoscopy follow up). A negative Cologuard test result does not guarantee the absence of CRC or advanced adenoma (pre-cancer). The current Cologuard screening interval is every 3 years. ([place] Cancer Society and U.S. Multi-Society Task Force). Cologuard performance data in a 10,000 patient pivotal study using colonoscopy as the reference method can be accessed at the following location: www.iPrint/results. Additional description of the Cologuard test process, warnings and precautions can be found at [email or web address]. Stool specimen (specimen) 04/19/2024 2:42 PM EST 04/20/2024 11:11 AM EST King Calderon MD LAB MOLECULAR DIAG NOSTICS ORDERABLES Final Result [employer] (CLIA #:[id number]) [address] [place] [address], from Last 3 Months or Most Recently Relevant to Health Maintenance Insurance [employer] Care Teams Toy Assembly Supervisor Relationship Specialty Start Date End Date King Dhaliwal MD [address] [place] [id number] PCP - General Internal Medicine 04/15/24
--- OUTSIDE RECORDS SUMMARY | 2024-12-18 18:50 | XMS_ITS | Encounter Summary ---
Author Organization [employer] Address [address] [facility] 7[address] [place] [address] Care Team Providers Care Marriage Counselor Minister Name Role Phone King Dhaliwal MD Primary Care Prov ider Reason for Visit * Reason Onset Date Comments Appointment Request 05/20/2024 Encounter Details Date Type Department Care Team ([facility] st Contact Info) Description 05/20/2024 Telephone [facility] [address] [place] [address] King Dhaliwal MD [address] [place] [address] Appointment Request Social History Tobacco Use Types Packs/Day [...] encounter Miscellaneous Notes * Telephone Encounter - Janiya Obregon - 05/20/2024 8:55 AM EST Tc from pt requesting reschedule 05/20 appt. Pt sates cancelled appt by accident. [phone] documented in this encounter Plan of Treatment Not on file documented as of this encounter Visit Diagnoses Not on filedocumented in this encounter Additional Health Concerns Assessment Noted Time PHQ-9 Depression Total Score: 15 024 2:19 PM EST documented as of this encounter Care Teams Marriage Counselor Minister Relationship Specialty Start Date End Date King Dhaliwal MD [address] [place] [id number] PCP - General Internal Medicine 04/15/24 documented as of this encounter
--- OUTSIDE RECORDS SUMMARY | 2024-12-18 18:50 | XMS_ITS | Encounter Summary ---
Author Organization [employer] Address [address] [facility] 7t [place] [address] Care Team Providers Care Cooking Instructor Name Role Phone King Dhaliwal MD Primary Care Prov ider Reason for Visit * Reason Onset Date Comments Call Back Request 06/03/2024 Encounter Details Date Type Department Care Team ([facility] st Contact Info) Description 06/03/2024 Telephone [facility] [address] [place] [address] King Dhaliwal MD [address] [place] [address] Call Back Request Social History Tobacco Use [...] several concerns , pt denied triage call. [phone] documented in this encounter Plan of Treatment Not on file documented as of this encounter Visit Diagnoses Not on filedocumented in this encounter Additional Health Concerns Assessment Noted Time PHQ-9 Depression Total Score: 15 024 2:19 PM EST documented as of this encounter Care Teams Cooking Instructor Relationship Specialty Start Date End Date King Dhaliwal MD [address] [place] [id number] PCP - General Internal Medicine 04/15/24 documented as of this encounter
== END 2024-12-18 18:37 | disposition home or self-care (01) ==
LOC: HO.MRI 18:36
PROVIDERS: PCP Internal Medicine; Visit Provider Internal Medicine
DX: M54.16 Radiculopathy, lumbar region (principal)
CPT/HCPCS: 72148

== ENCOUNTER 2025-02-12 10:17 | Outpatient (REF) | payer MEDICAID, SELFPAY ==
--- OUTSIDE RECORDS SUMMARY | 2024-01-08 04:00 | XMS_ITS ---
Author Organization [facility] Address [address] [place] [id number] Care Team Providers Care Municipal Firefighter Name Role Phone GtZAcodieve - DO NOT USE, [facility] Primary Care Provider Unavailable Rebeca Castillo Unavailable [phone] Alejandra Rai Unavailable [phone] REASON FOR VISIT MS/Office: MH intake Encounters Encounter Location Date Provider Diagnosis [address] [address] 01/08/2024 Alejandra Rai Plan Of Treatment No Information Progress Notes * Edvin CHAMBERSDOB:[birth year] (54 yo M)Acc No.[id number]:01/08/2024 Progress Notes Patient: Edvin ACOSTA Provider: Blaise Rai :1970 A ge:53 Y S ex:Male Date:01/08/2024 Address:[address] [place], [place] [id number] Pcp:[facility] ZSally - DO NOT USE Subjective: * Chief Complaints: * 1 . MS/Office: MH intake. * Medical History: Objective: * Vitals: Assessment: Plan: * Treatment: * Images: Billing Information: * Visit Code: * Procedure Codes: Care Plan Details* * Electronic signature of Mikey Rai on 02/12/2025 at 11:55 AM EST Sign off status: Pending * Provider: Blaise Rai Date: 0 01/08/2024 Generated for Aura lorenz/Destiny/Aries on: 1 04/14/2024 11:55 AM EST
--- OUTSIDE RECORDS SUMMARY | 2024-01-09 05:30 | XMS_ITS ---
Author Organization [facility] Address [address] [place] [address] Care Team Providers Care Copy Technician Name Role Phone ZZArchive - DO NOT USE, [facility] Primary Care Provider Unavailable Rebeca Castillo Unavailable [phone] REASON FOR VISIT Office: Re-establish Medications Medication SIG (Take, Route, Fr equency, Duration) Notes Start Date End Date Status IBUPROFEN 600 mg 1 tab(s) orally tid prn pain 07/2018 Not-Taking SERTRALINE 100 mg 1 tab(s) orally once a day for 30 day(s) 01/11/2019 Not-Taking FAMOTIDINE 20 mg 1 tab(s) orally once a day for 30 days 04/15/2020 Not-Taking Encounters Encounter Location Date Provider Diagnosis [facility] [address] [place] [address] 01/09/2024 Rebeca Castillo Encounter for screening for COVID-19 Z11.52 Assessments Encounter Date Diagnosis (ICD Code) Assessment Notes Treatment Notes Treatment Clinical Notes Section Notes 01/09/2024 Encounter for screening for COVID-19 (ICD-10 - Z11.52) Covid screening is negative. Discussed in detail with patient how to practice social distancing by avoiding public spaces and crowds now, wearing a mask in public to keep nose and mouth covered, and washing hands frequently especially before eating and after using the bathroom. Return to clinic if you develop any symtpoms of concern to be rescreened or go to the emergency room if you are having concerning symptoms for COVID-19. 01/09/2024 Other Plan Of Treatment Treatment Notes Assessment Notes Encounter for screening for COVID-19 Cov id screening is negative. Discussed in detail with patient how to practice social distancing by avoiding public spaces and crowds now, wearing a mask in public to keep nose and mouth covered, and washing hands frequently especially before eating and after using the bathroom. Return to clinic if you develop any symtpoms of concern to be rescreened or go to the emergency room if you are having concerning symptoms for COVID-19. Progress Notes * Edvin CHAMBERSDOB:[birth year] (54 yo M)Acc No.[id number]:01/09/2024 Progress Notes Patient: Edvin ACOSTA Provider: BLU Soler :1970 A ge:53 Y S ex:Male Date:01/09/2024 Address:[address] [place], [place] [id number] Pcp[facility] Jack - DO NOT USE Subjective: * Chief Complaints: * 1 . Office: Re-establish. * HPI: G eneral: Symptom Screen: - Fever in the last 1 week? Patient denies - New or worsening cough in the last 1 week? Patient denies. - Contact will known COVID exposure in last 5 days? Patient denies -new rash within last 3 weeks? Patient denies RN/MA: - Have you received the COVID-19 vaccine? - Have you received COVID-19 booster? - Have you been tested positive for COVID -19 in the last 7 days? If so where and why?. * ROS: N o acute C/P no acute SOB, No problem with urine, No heartburn or abdominal pain. Endorses being able to climb one fight of stairs without stopping due to SOB, Mood: stable, appetite: good, sleeping well. Denies new skin rashes. * Medical History: * Medications: N ot-Taking/PRN FAMOTIDINE 20 mg tablet 1 tab(s) orally once a day , Not- Taking/PRN SERTRALINE 100 mg tablet 1 tab(s) orally once a day , Not-Taking/PRN IBUPROFEN 600 mg tablet 1 tab(s) orally tid prn pain Objective: * Vitals: Assessment: * Assessment: 1. E ncounter for screening for COVID-19 - Z11.52 (Primary) Plan: * Treatment: * Images: Billing Information: * Visit Code: * Procedure Codes: Care Plan Details* * Electronic signature of Carlo Castillo on 02/12/2025 at 11:55 AM EST Sign off status: Pending * Provider: BLU Soler Date: Generated for Aura lorenz/Destiny/Aries on: 04/14/2024 11:55 AM EST
--- OUTSIDE RECORDS SUMMARY | 2024-12-21 16:00 | XMS_ITS ---
Author Organization [facility] Address [address] [place] [address] Care Team Providers Care Cook Barbecue Name Role Phone Jack - DO NOT USE, [facility] Primary Care Provider Unavailable Rebeca Castillo Unavailable [phone] Migration, Provider Unavailable Unavailable REASON FOR VISIT Multum To Medispan Conversion Encounter Medications Medication SIG (Take, Route, Frequency, Duration) Notes Start Date End Date Status Famotidine 20 MG 1 tab(s) orally once a day for 30 days 04/15/2020 Not-Taking Ibuprofen 600 MG 1 tab(s) orally tid prn pain 01/11/2019 Not-Taking Sertraline HCl 100 MG 1 tab(s) orally on ce a day for 30 day(s) 01/11/2019 Not-Taking Encounters Encounter Location Date Provider Diagnosis [facility] [address] [place] [phone] 12/21/2024 Provider Migration Plan Of Treatment No Information Progress Notes * Edvin CHAM[birth year]SDOB:[birth year] (54 yo M)Acc No.[id number]:12/21/2024 Patient: Edvin ACOSTA Provider: :1970 A ge:54 Y S ex:Male Date:12/21/2024 Address:[address] [place], [place] [id number] Pcp:[facility] Jack - DO NOT USE Subjective: * Chief Complaints: * 1 . Multum To Medispan Conversion Encounter. * Medical History: * Medications: N ot-Taking/PRN Famotidine 20 MG Tablet 1 tab(s) orally once a day , Not- Taking/PRN Sertraline HCl 100 MG Tablet 1 tab(s) orally once a day , Not-Taking/PRN Ibuprofen 600 MG Tablet 1 tab(s) orally tid prn pain Objective: * Vitals: Assessment: Plan: * Treatment: * Images: Billing Information: * Visit Code: * Procedure Codes: * Electronic signature of Prov ider Migration on 02/12/2025 at 11:55 AM EST Sign off status: Pending * Provider: Date: 0 12/21/2024 Generated for Aura lorenz/Destiny/Aries on: 04/14/2024 11:55 AM EST
--- OUTSIDE RECORDS SUMMARY | 2025-02-12 11:56 | XMS_ITS | Patient Health Record ---
Author Organization [facility] Address [address] [place] [address] Care Team Providers Care Operator/Assistant Foreman Name Role Phone [employer] - DO NOT USE, [facility] Primary Care Provider Unavailable Rebeca Castillo Unavailable [phone] Migration, Provider Unavailable Unavailable Allergies No Known Allergies Reason For Referral No Information Medications Medication SIG (Take, Route, Frequency, Duration) Notes Start Date End Date Status Famotidine 20 MG 1 tab(s) orally once a day for 30 days 04/15/2020 Not-Taking Ibuprofen 600 MG 1 tab(s) orally tid prn pain 01/11/2019 Not-Taking Sertraline HCl 100 MG 1 tab(s) orally on ce a day for 30 day(s) 01/11/2019 Not-Taking Immunizations Vaccine Route Administration Date Status Comme nts PPD planted Unknown 10/21/2007 Administered negative Td (adult) Unknown 04/10/1997 Administered Influenza IM Intramuscular 02/14/2008 Administered Hepatitis A IM Intramuscular 05/21/2018 Administered [facility][note 3] [id number] Hepatitis B (20 or more) IM Intramuscular 06/04/2018 Administered 80275-034-35 Influenza IM Intramuscular 06/04/2018 Administered 56374- [id number] Social History Tobacco Use: Social History [...] Status W/U Status Risk Notes Problem Obesity (252448565) Obesity, unspecified (E66.9) Active confirmed Problem Alcohol dependence (01352171) Alcohol dependence, uncomplicated (F10.20) Active confirmed Problem Mental disorder caused by drug (469747728) Cocaine abuse with unspecified cocaine-induced disorder (F14.19) Active confirmed Problem Tobacco user (925553934) Nicotine dependence, cigarettes, uncomplicated (F17.210) Active confirmed Problem Depressed bipolar I disorder (25991228) Bipolar disorder, current episode depressed, mild or moderate severity, unspecified (F31.30) Active confirmed Problem Recurrent major depression (37192844) Major depressive disorder, recurrent, unspecified (F33.9) Active confirmed Problem Posttraumatic stress disorder (61457178) Post-traumatic stress disorder, chronic (F43.12) Active confirmed Problem Insomnia (023429486) Insomnia, unspecified (G47.00) Active confirmed Problem Gastro-esophageal reflux disease without esophagitis (526888051) Gastro-esophageal reflux disease without esophagitis (K21.9) Active confirmed Problem Urge incontinence of urine (13524909) Urge incontinence (N39.41) Active confirmed Problem Skin sensation disturbance (23435423) Hypoesthesia of skin (R20.1) Active confirmed Problem Polyuria (19979429) Other polyuria (R35.8) Active confirmed Problem Impaired fasting glucose (792546887) Impaired fasting glucose (R73.01) Active confirmed Problem Homelessness (91629497) Homelessness (Z59.0) Active confirmed Problem Low income (259702524) Low income (Z59.6) Active confirmed Problem Body mass index 30.00 to 34.99 (862116928571010) Body mass index (BMI) 32.0-32.9, adult (Z68.32) Active confirmed Problem Dietary management surveillance (146393952) Dietary counseling and surveillance (Z71.3) Active confirmed Problem High risk heterosexual behavior (871178860060675) High risk heterosexual behavior (Z72.51) Active confirmed Problem FH: Diabetes mellitus (822963582) Family history of diabetes mellitus (Z83.3) Active confirmed Problem Exercises teaching, guidance, and counseling (022658983) Exercise counseling (Z71.82) Active confirmed Problem Depression Screening (667455026) Encounter for screening for depression (Z13.31) Active confirmed Encounters Encounter Location Date Provider Diagnosis [facility] [address] [place] [address] 12/21/2024 Provider Migration Plan Of Treatment Pending Test Test Name Order Date GLYCOHEMOGLOBIN PROFILE 05/21/2018 US Renal and Bladder 07/15/2019 Insurance Providers Payer Name Payer Address Payer Phone Subscriber Number Group Number Insured Name Patient Relationship to Insured Coverage Start Date Coverage End Date [place] C3 [address] [place], [place] [id number] Edvin Brito Self - patient is the insured 7 [place] [employer] [address] [place] [address] [id number] Edvin Brito Self - patient is the insured Medical (General) History Medical History History ICD Code Cocaine/Etoh use 03/2017 MDD OBESITY NOS Surgical History Surgery Date(Month/Year) Hospitalization History Reason Date(Month/Year) [facility] [place] [facility] ADM, MDD with [facility] ideation, substance use disorder, cocaine use disorder 01/08-01/15/19 [facility] [place] disorder, dc to home 01/04 [facility] of psych admissions-[facility]-psych admission 2015
[2025-02-12 14:15] LABS: MANUAL DIFF FLAG NO
[2025-02-12 14:17] LABS: Hematocrit 45.7 % (42.0-52.0); Hemoglobin 15.3 g/dl (14.0-18.0); Imm Gran Abs Auto 0.02 X10*3/uL (0.00-0.03); Imm Gran Pct Auto 0.3 % (0.0-0.4); Lymphocytes Absolute Auto 2.4 X10*3/uL (1.2-4.9); Mean Corpuscular HGB Conc 33.5 g/dl (31.0-36.0); Mean Corpuscular Hemoglobin 30.8 pg (27.0-33.0); Mean Corpuscular Volume 92.1 fL (80.0-98.0); NRBC Abs Auto 0.000 X10*3/uL (0.0-0.012); NRBC Pct Auto 0.0 /100WBC (0.0-0.2); Platelet Count 256 X10*3/uL (160-400); Red Blood Count 4.96 X10*6/uL (4.60-5.80); White Blood Count 6.8 X10*3/uL (4.8-10.8)
[2025-02-12 14:19] LABS: INTERNATIONAL NORM RATIO 1.0 (0.9-1.1); Prothrombin Time 11.8 SEC (11.2-13.5)
[2025-02-12 14:22] LABS: Appearance Urine Clear; Glucose Urine UA Negative (Negative); PH 7.0 (5.0-9.0); Specific Gravity - Urine 1.025 (1.005-1.025)
[2025-02-12 14:47] LABS: Prostate Specific Antigen 0.28 ng/mL (<0.05-4.0)
[2025-02-12 14:49] LABS: Cholesterol 212 mg/dL (<200)
[2025-02-12 14:52] LABS: HDL Cholesterol 53 mg/dL (>40); Iron 87 mcg/dL (45-160); Percent Iron Saturation 29 % (15-50); Total Iron Binding Capacity 298 mcg/dL (228-428); Triglycerides 204 mg/dL (<150); Unsaturated Iron Binding 211 ug/dL
[2025-02-12 15:07] LABS: Ferritin 334 ng/mL (20-250)
[2025-02-13 08:01] LABS: Hepatitis A Antibody IgM 0.16 Index (0-0.79); ~Hepatitis A Antibody IgM Nonreactive (Nonreactive)
[2025-02-13 08:19] LABS: HBS Num1 0.00 mIU/mL (0-7.99); HBc Num1 0.05 S/CO (0.00-0.79); HBsAGNum1 0.42 S/CO (0.00-0.99); Hepatitis B Surface Antigen Negative (Negative); ~HepC Num1 0.25 S/CO (0.00-0.79); ~Hepatitis B Surface Antibody NONREACTIVE (Nonreactive); ~Hepatitis C Antibody Nonreactive (Nonreactive)
[2025-02-14 08:07] LABS: ~Hepatitis A Antibody IgG 3.90 S/CO (0.00-0.99)
== END 2025-02-12 10:18 | disposition home or self-care (01) ==
LOC: HO.CHCLDS 10:17
PROVIDERS: PCP Internal Medicine; Referring Provider Nurse Practitioner Family; Visit Provider Internal Medicine
DX: Z12.5 Encounter for screening for malignant neoplasm of prostate (principal); Z11.59 Encounter for screening for other viral diseases; N40.0 Benign prostatic hyperplasia without lower urinary tract symptoms; N50.811 Right testicular pain; R74.01 Elevation of levels of liver transaminase levels; R80.8 Other proteinuria
CPT/HCPCS: 36415; 80061; 81001; 82728; 83036; 83540; 84153; 85025; 85610; 86704; 86706; 86708; 86709; 86803; 87340